=== PATIENT | male | born 1975 | race Caucasian/White ===

== ENCOUNTER 2023-04-29 10:22 | Inpatient (IN) | payer MEDICARE, OTHER, SELFPAY ==
[2023-04-27 20:50] VITALS: BP 123/90
--- NOTE | 2023-04-27 21:17 | ED.GENMED ---
History of Present Illness
General
Chief Complaint: Abdominal Symptoms
Source: patient and records
Exam Limitations: none
Time Seen by Provider: 04/27/23 21:12
Nursing documentation reviewed up to this point in time: agreed with
Travel History
Have you had any contact with someone who has COVID-19?: No
Do you have any symptoms of coronavirus? Fever > 100 degrees, chills, cough, shortness of breath, sore throat, loss of taste or smell, muscle aches, or headache?: No
History of Present Illness
History of Present Illness:
Patient is a 48-year-old male who presents to the emergency department complaining of right back pain and lower abdominal pain with nausea and vomiting this morning. Patient has been having the pain intermittently and has a history of kidney
stones. Patient states his urologist is wanted to get a scan of his abdomen. Patient has cystoscopy that looked fine. Patient denies fever or chills. Patient has not been feeling well for about the last month. Patient has back pain on the
right. Patient denies any hematuria, dysuria, frequency or urgency. Patient began vomiting this morning and has been unable to keep anything down. Patient has not used marijuana in the past 2 weeks.
Past History
Past History
ED Past Medical History: GERD (GERD with Quiñones's esophagus), Other (Kidney stones), Other (Fibromyalgia, anxiety, depression) and Other (Undifferentiated colitis)
ED Past Surgical History: Urological; Negative Bowel resection, Brain, Cardiac or Cholecystectomy
Social History
Tobacco: Non-smoker
Alcohol: None
Drug: Marijuana
Personal:
Living: with family
Family History
Family History: Other (Noncontributory)
Review of Systems
Review of Systems
All Other Systems: ROS reviewed and negative except as documented in HPI and ROS
Constitutional: Reports fatigue and chills; Denies fever
EENT: Reports no symptoms
Respiratory: Reports no symptoms
Cardiac: Reports no symptoms
ABD/GI: Reports abdominal pain, nausea, vomiting and anorexia; Denies diarrhea or constipated
: Reports flank pain; Denies dysuria, frequency, urgency, bleeding or dark urine
Musculoskeletal: Reports back pain
Skin: Reports no symptoms
Neurological: Reports no symptoms
Hematologic/Lymphatic: Reports no symptoms
Phy Exam
Physical Exam
Physical Exam:
Physical Exam
General: significant dry mucous membranes distress, alert and appropriate, well nourished, well hydrated
HENT: Normocephalic, supple with no lymphadenopathy, no thyromegaly
Eyes: Clear sclera, conjuctiva without injection
Heart: Regular rhythm and rate. No S3, S4. No murmur.
Lungs: No respiratory distress, no stridor, lung sounds clear and equal bilaterally, chest wall symmetrical and nontender
Abdomen: Soft, mild lower abdominal tenderness without guarding or rebound, no organomegaly, no CVA tenderness, BS good
Neuro: Alert and oriented x 3, CN II - XII intact, no motor focality, no cerebellar dysfunction
Skin: no rash. Pale
Psychiatric: well kept. interactive and cooperative
Extremities: No edema, cyanosis, tenderness, Good and equal peripheral pulses.
Course
Orders/Labs/Results
Orders:
Orders
04/27/23 21:16
Urinalysis Reflex To Culture Urgent
0.9% Sodium Chloride 1000 ml [Nss] 1,000 ml IV BOLUS
HYDROmorphone [Dilaudid] 1 mg IV NOW STA
Ketorolac [Toradol] 15 mg IV NOW STA
Ondansetron Injectable [Zofran] 4 mg IV NOW STA
04/27/23 21:17
CT Abd/pel Without Iv Or Oral Urgent
Comment:
Reason For Exam: right renal colic
04/27/23 21:23
Complete Blood Count/With Diff Urgent
Comprehensive Metabolic Panel Urgent
Abnormal Lab Results
02/03/24
21:23
RBC 3.98 L 10^6/uL
(4.70-6.10)
Hgb 12.0 L g/dL
(13.0-18.0)
Hct 33.6 L %
(39.0-52.0)
Absolute Lymphs (auto) 0.3 L 10^3/uL
(1.2-3.4)
Neutrophils % 88.7 H %
(42.2-75.2)
Lymphocytes % 4.8 L %
(20.5-51.1)
Carbon Dioxide 19 L mmol/L
(22-30)
Glucose 103 H mg/dl
(70-99)
04/27/23 21:23
04/27/23 21:23
Vital Signs
Initial and Last Documented VS:
Initial Vital Signs
Pulse Resp BP Pulse Ox
125 18 123/90 97
04/27/23 20:50 04/27/23 20:50 04/27/23 20:50 04/27/23 20:50
Last Documented Vital Signs
Pulse Resp BP Pulse Ox
125 18 123/90 97
04/27/23 20:50 04/27/23 20:50 04/27/23 20:50 04/27/23 20:50
*Radiology
Radiology exam reviewed: radiology read reviewed (5 x 5 mm UPJ stone on the right with hydronephrosis)
*Pulse Oximetry
Patient hypoxic: no
*EKG
Interpreted by ED Provider?: NA
*Logging Tractor Operator Interpretation
Rate: Logging Tractor Operator- N/A
*Critical Care Note
Total Time (30-74mins, 75-104mins- exclusive of procedures): Not Applicable
Update Note
Update Note:
Patient still with some pain and nausea although the vomiting stopped. Spoke with urology will admit to the hospitalist.
ED Attending Note
-
Portions of this chart may have been created with voice recognition software.� Occasional wrong word or��sound alike� substitutions may have occurred due to the inherent limitations of voice recognition software.
Discharge Plan
Departure
Patient Disposition: Admit
Date of Disposition: 04/27/23
Time of Disposition: 22:20
Admit to: Med/Surg
Admit to doctor: Hospitalist
Presentation/result/management discussed w/ accepting MD/DO: Urology
Patient with high blood pressure during this ER visit?: No
Condition: Fair
Covid-19: Not Applicable
Discharge Problem:
Renal colic on right side, Acute hydronephrosis, Ureterolithiasis
Prescriptions:
No Action
lorazepam 0.5 MG tablet
0.5 mg PO TID
Patient Comments:
06/05/2021: last filled 05/31/21, 90 tabs for 30 days from [facility]
gabapentin [Neurontin] 600 MG tablet
600 mg PO TID
omeprazole 20 MG capsule,delayed release(DR/EC)
20 mg PO BID
loratadine 10 MG tablet
10 mg PO BID
duloxetine 60 MG capsule,delayed release(DR/EC)
120 mg PO DAILY Qty: 60 0RF
tamsulosin 0.4 MG capsule
0.4 mg PO DAILY 30 Days Qty: 30 0RF
Referrals:
Raffy Colón DO [Family Provider] -
Interventions
Interventions:
*General Assessment Last Done: 04/27/23 21:29
ED- Fall Risk Assessment Last Done: 04/27/23 21:27
JK-Hkvsmt-Qxuajxjobg Assessment Last Done: 04/27/23 21:27
[2023-04-27] MEDS: NSS 1000 IV (21:23)
[2023-04-27] MEDS: DILAUDID 1 MG IV (21:23)
[2023-04-27] MEDS: ZOFRAN 4 MG IV (21:24)
[2023-04-27] MEDS: TORADOL 15 MG IV (21:24)
[2023-04-27 21:31] LABS: % Basophils 0.3 % (0-2); % Immature Granulocytes 0.3 % (0-0.5); % Lymphocytes 4.8 % (20.5-51.1); % Monocytes 5.9 % (1.7-9.3); % Neutrophils 88.7 % (42.2-75.2); Absolute Lymphocytes 0.3 10^3/uL (1.2-3.4); Absolute Monocytes 0.4 10^3/uL (0.1-0.6); Hematocrit 33.6 % (39.0-52.0); Mean Corp Hgb Conc. 35.7 g/dL (33.0-37.0); Mean Corpuscular Hgb 30.2 pg (27.0-31.0); Mean Corpuscular Volume 84.4 fL (80.0-94.0); Mean Platelet Volume 10.3 fL (7.4-10.4); Nucleated Red Blood Cells % 0 % (-); Platelet Count 206 10^3/uL (130-400); Red Blood Cell Count 3.98 10^6/uL (4.70-6.10); Red Cell Dist. Width 12.2 % (11.5-14.5); White Blood Cell Count 6.7 10^3/uL (4.8-10.8)
[2023-04-27 21:45] LABS: ALT (SGPT) 27 U/L (0-50); AST (SGOT) 32 U/L (17-59); Alkaline Phosphatase 90 U/L (38-126); Blood Urea Nitrogen 9 mg/dl (9-20); Calcium 9.2 mg/dl (8.4-10.2); Carbon Dioxide 19 mmol/L (22-30); Chloride 103 mmol/L (98-107); Glucose 103 mg/dl (70-99); Potassium 3.8 mmol/L (3.5-5.1); Sodium 135 mmol/L (135-145); Total Bilirubin 0.6 mg/dl (0.2-1.3); Total Protein 7.3 g/dl (6.3-8.2); eGFR > 60.00
[2023-04-27 22:37] LABS: Urine Albumin 1+ (Neg - Trace); Urine Bilirubin Negative (Negative); Urine Character Clear (Clear); Urine Color Yellow; Urine Glucose Negative (Negative); Urine Ketone 3+ (Negative); Urine Leukocyte Negative (Negative); Urine Nitrite Negative (Negative); Urine Occult Blood Trace (Negative); Urine Specific Gravity 1.025 (<1.030); Urine Urobilinogen Negative (Neg - 1+)
[2023-04-27 23:12] LABS: Urine Bacteria Few (Negative); Urine Red Blood Cell 0-2 /HPF (0-2); Urine Squamous Cell 0-2 /LPF (Few)
--- NOTE | 2023-04-27 23:41 | HPS.HSE ---
Family Physician
-
Family Physician: Raffy Colón
Chief Complaint
-
n/v/right back pain
History of Present Illness
The patient is a 48 yo male with PMH significant for kidney stones, cyclic vomiting syndrome, prior marijuana use (none currently x 2 weeks), anxiety, depression, fibromyalgia, hiatal hernia, presenting to the ED due to nausea and vomiting that has
persisted for several weeks. He presents due to worsening symptoms after he thought they were improving, associated bilateral flank pain that is worse on the right side and radiating to the right thigh. He's had several urologic procedures, sees a
female Urology off of [address] in [place] (he cannot remember her name). He has occasional episodes of hematuria, non currently. No dysuria currently. He has decreased oral intake for food and water due to persistent vomiting. No fevers, no
chills, though he feels flushed prior to vomiting. No CP, no SOB, no diarrhea.
Medical History
Past Medical History
Past Medical History: Reports Psychiatric (Depression, anxiety) and Other (Fibromyalgia, hiatal hernia, kidney stones, cyclic vomiting syndrome)
Past Surgical History: Reports Tonsilectomy and Urological (stents, stone extraction, ureteroscopy)
Social History
Tobacco: Non-smoker
Alcohol: None
Drug: Other (former marijuana - 2 weeks ago)
Family History
Family History: Not pertinent (asked patient and negative for FH)
Allergies / Home Medications
Allergies reflects when Allergies were last updated in [employer].
Home Medications with original date entered in [employer]
Allergy/Medication List:
Allergies
Allergy/AdvReac Type Severity Reaction Status Date / Time
No Known Allergies Allergy Verified 06/07/21 10:37
Home Medications
lorazepam 0.5 mg tablet 0.5 mg PO TID Mental Health/Anxiety 08/04/18
gabapentin 600 mg tablet (Neurontin) 600 mg PO TID Neurological Condition 03/03/21
omeprazole 20 mg capsule,delayed release 20 mg PO BID Gastrointestinal issue 03/03/21
loratadine 10 mg tablet 10 mg PO BID Allergies 03/04/21
duloxetine 60 mg capsule,delayed release 120 mg PO DAILY Mental Health/Anxiety #60 caps 03/07/21
tamsulosin 0.4 mg capsule 0.4 mg PO DAILY 30 days #30 caps 06/06/21
Review of Systems
-
A 12 point ROS was completed and negative except as noted: Yes
Physical Exam
Vital Signs
Vital Signs
Pulse Resp BP Pulse Ox
125 18 123/90 97
04/27/23 20:50 04/27/23 20:50 04/27/23 20:50 04/27/23 20:50
Physical Exam
General: Well Developed, Well Nourished and Appears in Distress (due to flank pain)
HEENT: NormoCephalic, Anicteric and Moist mucous membranes
Respiratory: Clear
Cardiac: S1/S2 and Regular Rhythm
GI: Soft, Non Tender and Non Distended
Genito-urinary: Costovertebral angle tend (b/l)
Musculoskeletal: No Clubbing, No Cyanosis and No Edema
Skin: Warm and Dry
Neuro: AO x 3, No Motor Deficits and Nonfocal/grossly intact
Psych: Calm
Laboratory Results
-
04/27/23 21:23
04/27/23 21:23
Laboratory Results
Total Bilirubin 0.6 mg/dl (0.2-1.3) 04/27/23 21:23
AST 32 U/L (17-59) 04/27/23 21:23
ALT 27 U/L (0-50) 04/27/23 21:23
Alkaline Phosphatase 90 U/L (38-126) 04/27/23 21:23
Data Reviewed
-
CT Scan: Report Reviewed by me (3 by 5 by 5 mm right UPJ stone, multiple non-obstructing stones, left parapelvic cyst, fatty liver)
Impression/Plan
-
IMPRESSION:
The patient is a 48 yo male with PMH significant for kidney stones, cyclic vomiting syndrome, prior marijuana use (none currently x 2 weeks), anxiety, depression, fibromyalgia, hiatal hernia, presenting to the ED due to nausea and vomiting that has
persisted for several weeks. He presents due to worsening symptoms after he thought they were improving, associated bilateral flank pain that is worse on the right side and radiating to the right thigh.
#Nephrolithiasis associated with nausea, vomiting, and right-sided CVA tenderness with moderate to severe flank pain
-Urology consultation appreciated, to see in am
-IVF, strain urine
-IV pain medications prn, anti-emetics prn
#Depression, anxiety, fibromyalgia
-continue home meds once tolerating oral meds
#Hiatal hernia
#Cyclic vomiting, history of marijuana use
#GERD
-cont PPI BID
DVT proph-Lovenox
Full Code
[2023-04-28] VITALS: BP 132/86; BMI 22.4
[2023-04-28] MEDS: NSS 1000 IV ×4 (00:27→20:48)
[2023-04-28] MEDS: DILAUDID 1 MG IV ×2 (00:27→04:29)
--- NOTE | 2023-04-28 01:55 | PTCARENOTE ---
Receive pt from ER. Pt alert oriented X3, calm and cooperative. Pt assisted X1 to his bed. Pt oriented to the room, call sparrow within reach. VSS (T=98.3, IT=304, RR=18, QY=768/86, SpO2=98% on RA). Pt states that his pain is returning. Pain mostly on
his right flank and right lower Abd. Pain is 7/10. Dilaudid 1mg IV given for pain, IVFs infusing as per order. Will continue to monitor the pt.
[2023-04-28] MEDS: ZOFRAN 4 MG IV ×3 (04:28→18:00)
--- NOTE | 2023-04-28 05:56 | CONS.URO ---
Consultation
-
Date/Time Consultation Performed: 04/28/23 0545
Performing Provider: Armando
Reason for Consultation: right ureteral stone
Medical History
History of Present Illness
adult male presentied to the ED due to nausea and vomiting that has persisted for several weeks with
associated bilateral flank pain that is worse on the right side. He has a known active kidney stone disease for which he has seen Dr Miguel at [facility]. 'During the at [facility]' he underwent a surgery for stones.
Past Medical History
Past Medical History: Other (Depression, anxiety) and Other (Fibromyalgia, hiatal hernia, kidney stones, cyclic vomiting syndrome)
Family History
Family History: Reviewed & Not Pertinent
Allergies/Home Medications
Allergies
Allergy/AdvReac Type Severity Reaction Status Date / Time
No Known Allergies Allergy Verified 06/07/21 10:37
Home Medications
Medication Instructions Recorded Confirmed Type
lorazepam 0.5 mg tablet 0.5 mg PO TID Mental Health/Anxiety 08/04/18 06/05/21 History
gabapentin 600 mg tablet 600 mg PO TID Neurological 03/03/21 06/05/21 History
(Neurontin) Condition
omeprazole 20 mg capsule,delayed 20 mg PO BID Gastrointestinal issue 03/03/21 06/05/21 History
release
loratadine 10 mg tablet 10 mg PO BID Allergies 03/04/21 06/05/21 History
duloxetine 60 mg capsule,delayed 120 mg PO DAILY Mental 03/07/21 06/05/21 Rx
release Health/Anxiety #60 caps
tamsulosin 0.4 mg capsule 0.4 mg PO DAILY 30 days #30 caps 06/06/21 Rx
Review of Systems
-
Constitutional: Reports No Symptoms
Respiratory: Reports No Symptoms
Cardiac: Reports No Symptoms
Abdomen/GI: Reports Nausea and Vomiting
: Reports Flank Pain (right)
Physical Exam
Vital Signs
Vital Signs
Temp Pulse Resp BP Pulse Ox
98.5 F 107 18 132/86 97
04/28/23 00:00 04/28/23 00:00 04/28/23 00:00 04/28/23 00:00 04/28/23 00:53
Lab / Testing Results
Laboratory Results
04/27/23 21:23
04/27/23 21:23
Physical Exam
adult male
General: No Apparent Distress
GI: Soft, Non Tender and Non Distended
Genito-urinary: No Costovertebral Tend
Skin: Warm
Neuro: Awake, Alert and Oriented
Psych: Calm
Assessment / Plan
-
Right ureteral calculus: 5-6 mm, proximal, causing partial obstructing
no signs of infection
bilateral renal stones
bilateral renal cysts
Rec: stone's size indicates that it has a significant possibility of passing spontaneously, so Medical Expulsive Therapy is indicated, which can be continued on an outpatient basis once pain is satisfactorily managed
Data Reviewed
-
CT Scan: Image personally visualized and interpreted
Lab Data: Labs Reviewed
Old Records: Reviewed
[2023-04-28] MEDS: TORADOL 30 MG IV (06:27)
[2023-04-28 07:35] VITALS: BP 109/66
[2023-04-28] MEDS: FLOMAX 0.400000000000000022 MG PO (08:32)
[2023-04-28] MEDS: CYMBALTA DELAYED RELEASE 120 MG PO (08:32)
[2023-04-28] MEDS: NEURONTIN 600 MG PO ×2 (08:32→15:00)
[2023-04-28] MEDS: PROTONIX 40 MG PO ×2 (08:33→20:57)
[2023-04-28] MEDS: ATIVAN 0.5 MG PO ×2 (08:33→17:29)
[2023-04-28] MEDS: TYLENOL 650 MG PO ×2 (08:33→23:55)
--- NOTE | 2023-04-28 09:21 | W.PN.HOSP.TC ---
Today's Communication/Plan
-
re-assess pain/nausea in afternoon
Assessment / Plan
Assessment / Plan
Assessment:
Nephrolithiasis associated with nausea, vomiting, and right-sided CVA tenderness with moderate to severe flank pain
- CT: Approximate 3 x 5 x 5 mm partially obstructing calculus at the right ureteropelvic junction. Small bilateral nonobstructing renal calculi.
- Urology following; no surgical management, MET is appropriate
- IVF, strain urine
- IV pain medications prn, anti-emetics prn
- continue Flomax
- if pain levels acceptable on repeat evaluation this afternoon will DC with instructions on MET including aggressive hydration and Flomax usage. Also will provide Urology office info
Depression, anxiety, fibromyalgia
- continue home meds once tolerating oral meds
Hiatal hernia
Cyclic vomiting, history of marijuana use
GERD
- cont PPI BID
DVT proph: Lovenox
Full Code
Anticipated Discharge: Within 24 hours
Subjective/Interval History
-
Date of Service: April 28, 2023
Objective Data
-
Labs:
Laboratory Results
04/27/23
21:23
WBC 6.7
Hgb 12.0 L
Hct 33.6 L
Plt Count 206
Sodium 135
Potassium 3.8
Chloride 103
Carbon Dioxide 19 L
BUN 9
Creatinine 0.8
Glucose 103 H
Calcium 9.2
Total Bilirubin 0.6
AST 32
ALT 27
Alkaline Phosphatase 90
Vital Signs:
Vital Signs
Temp Pulse Resp BP Pulse Ox
98.6 F 122 20 109/66 97
04/28/23 07:35 04/28/23 07:35 04/28/23 07:35 04/28/23 07:35 02/04/24 07:35
I&O
04/27/23 04/28/23 04/29/23
06:59 06:59 06:59
Intake Total 120 / 120
Output Total 250 / 250
Balance -130 / -130
Data Reviewed
-
Total Time Spent with Patient (in minutes): 45
Labs: Labs Reviewed by me
--- NOTE | 2023-04-28 11:25 | CM ---
Addendum entered by Lauren Nicole 04/28/23 14:20:
IMM explained and signed
Original Note:
Met with patient at bedside; initial assessment completed
Pharmacy verified: [facility]
Patient reports that he lives with his in a 2 story home; 2 steps in; 16 steps between floors; powder room on 1st floor; 2nd floor bathroom: one has tub with shower the other has a stall shower
PLOF: reports he is independent with ambulation, stairs, and ADLs; drives; works [employer]
DME: none
SNF/Rehab/Home Care utilization history: none
Transport: will provide discharge home
Plan: possible discharge later today to home without services
[2023-04-28] MEDS: DILAUDID 0.5 MG IV ×4 (11:59→23:29)
[2023-04-28] MEDS: TORADOL 15 MG IV (14:37)
--- NOTE | 2023-04-28 14:52 | W.PN.UPDATE ---
Update Note
Progress Note Update
patient with ongoing flank pain, nausea with vomiting post-lunch
will continue current treatment, observe overnight
provide Claritin as he states he has a headache from missing Claritin; make prn triptan available as Tylenol ineffective
Also provide prn Ativan for anxiety
[2023-04-28] MEDS: CLARITIN 10 MG PO (14:57)
[2023-04-28 15:33] VITALS: BP 117/76
[2023-04-28 15:51] LABS: Benzodiazepines Positive (Negative); Marijuana Positive (Negative); Opiates Positive (Negative)
[2023-04-28 15:52] LABS: Amphetamines Negative (Negative); Barbiturates Negative (Negative); Buprenorphine Negative (Negative); Cocaine Negative (Negative); Methadone Negative (Negative); Methamphetamines Negative (Negative); Phencyclidine Negative (Negative); Tricyclic Antidepressants Negative (Negative)
[2023-04-28 16:33] LABS: Fentanyl, Urine Negative (Negative)
[2023-04-28] MEDS: NEURONTIN PO ×2 (20:57→21:01)
[2023-04-28] MEDS: OCEAN, SALINE MIST 2 SPRAYS NASAL (22:31)
[2023-04-28 23:51] VITALS: BP 129/78
[2023-04-29] MEDS: ZOFRAN 4 MG IV
[2023-04-29] MEDS: MAXALT MLT (ORALLY DISINTEGRATING) 10 MG PO (02:46)
[2023-04-29] MEDS: DILAUDID 0.5 MG IV (03:25)
[2023-04-29] MEDS: NSS 1000 IV (03:25)
[2023-04-29 06:19] LABS: Hematocrit 31.8 % (39.0-52.0); Hemoglobin 10.8 g/dL (13.0-18.0); Mean Corpuscular Hgb 30.3 pg (27.0-31.0); Mean Corpuscular Volume 89.3 fL (80.0-94.0); Mean Platelet Volume 10.6 fL (7.4-10.4); Platelet Count 155 10^3/uL (130-400); Red Blood Cell Count 3.56 10^6/uL (4.70-6.10); Red Cell Dist. Width 12.3 % (11.5-14.5); White Blood Cell Count 5.6 10^3/uL (4.8-10.8)
[2023-04-29 06:40] LABS: Blood Urea Nitrogen 8 mg/dl (9-20); Calcium 8.2 mg/dl (8.4-10.2); Carbon Dioxide 14 mmol/L (22-30); Chloride 100 mmol/L (98-107); Estimated Creatinine Clearance 104 ml/min; Glucose 71 mg/dl (70-99); Potassium 4.4 mmol/L (3.5-5.1); Sodium 131 mmol/L (135-145); eGFR > 60.00
[2023-04-29 07:35] VITALS: BP 110/70
[2023-04-29] MEDS: CYMBALTA DELAYED RELEASE 120 MG PO (08:40)
[2023-04-29] MEDS: PROTONIX 40 MG PO ×2 (08:40→20:06)
[2023-04-29] MEDS: CLARITIN 10 MG PO (08:40)
[2023-04-29] MEDS: NEURONTIN 600 MG PO ×3 (08:40→22:08)
[2023-04-29] MEDS: ATIVAN 0.5 MG PO (08:41)
[2023-04-29] MEDS: FLOMAX 0.400000000000000022 MG PO (08:41)
--- NOTE | 2023-04-29 08:43 | W.PN.URO.CBU ---
Today's Communication / Plan
-
outpatient Medical Expulsive Therapy is indicated: Tamsulosin, Ketorolac; straining of urine
his established urologist at [facility] can continue his care; if he decides otherwise, he can contact my office for f/u
Assessment / Plan
-
Right ureteral stone: pain has improved; based on stone's size, it is likely to eventually pass spontaneously
no signs of infection or renal compromise
Diagnosis
-
Date of Service: April 29, 2023
-
Patient Diagnosis:
Right ureteral calculus: 5-6 mm, proximal, causing partial obstructing
no signs of infection
bilateral renal stones
bilateral renal cysts
Subjective
-
patient reports that pain has dropped to 'a 4 out of 10'
Objective
-
Vital Signs
Temp Pulse Resp BP Pulse Ox
98.0 F 72 16 110/70 98
04/29/23 07:35 04/29/23 07:35 04/29/23 07:35 04/29/23 07:35 04/29/23 07:35
Intake and Output
04/28/23 04/29/23 04/30/23
06:59 06:59 06:59
Intake Total 120 / 120 240 / 240 2760 / 2760
Output Total 250 / 250 600 / 600 1620 / 1620
Balance -130 / -130 -360 / -360 1140 / 1140
Intake:
Oral fluids 120 / 120 240 / 240 960 / 960
IV fluids (Total) 0 / 0 1800 / 1800
IV piggybacks 0 / 0
Output:
Urine, Voided 250 / 250 600 / 600 1620 / 1620
Laboratory Results
04/29/23 05:35
04/29/23 05:35
Physical Exam
-
General - well developed, well nourished, no acute distress
[2023-04-29] MEDS: ROXICODONE 5 MG PO ×2 (08:47→20:06)
--- NOTE | 2023-04-29 13:55 | W.PN.HOSP.TC ---
Today's Communication/Plan
-
Possible discharge
Assessment / Plan
Assessment / Plan
Gen-AAOx3, NAD
HEENT-NC, AT, anicteric, clear oral mm
Neck-supple
CV-reg, no M, +S1/S2
Lungs-clear B/L
Abd-soft, NT, ND
Ext-no edema
Musculoskeletal-no cyanosis, clubbing
Skin-warm and dry
Neuro-grossly non-focal
Psych-calm, cooperative
Symptomatic nephrolithiasis - associated with nausea, vomiting, and right-sided CVA tenderness with moderate to severe flank pain
- CT: Approximate 3 x 5 x 5 mm partially obstructing calculus at the right ureteropelvic junction. Small bilateral nonobstructing renal calculi.
- Urology following; no surgical management, MET is appropriate
- IVF, strain urine
- IV pain medications prn, anti-emetics prn
- continue Flomax
- if pain levels acceptable on repeat evaluation this afternoon will DC with instructions on MET including aggressive hydration and Flomax usage. Also will provide Urology office info
Depression, anxiety, fibromyalgia
- continue home meds once tolerating oral meds
Hiatal hernia
Cyclic vomiting, history of marijuana use
GERD
- cont PPI BID
DVT proph: Lovenox
Full Code
Dispo -potential discharge this afternoon if he tolerates liquids. Discussed with patient and nurse. Outpatient PCP and urology follow-up.
Anticipated Discharge: Today
Subjective/Interval History
-
Date of Service: April 29, 2023
Patient seen and examined. Still with complaints of abdominal discomfort, mild nausea.
Objective Data
-
Labs:
Laboratory Results
04/29/23
05:35
WBC 5.6
Hgb 10.8 L
Hct 31.8 L
Plt Count 155 D
Sodium 131 L
Potassium 4.4
Chloride 100
Carbon Dioxide 14 L*
BUN 8 L
Creatinine 0.8
Glucose 71
Calcium 8.2 L
Vital Signs:
Vital Signs
Temp Pulse Resp BP Pulse Ox
98.0 F 72 16 110/70 98
04/29/23 07:35 04/29/23 07:35 04/29/23 07:35 04/29/23 07:35 04/29/23 07:35
I&O
04/28/23 04/29/23 04/30/23
06:59 06:59 06:59
Intake Total 120 / 120 240 / 240 2760 / 2760
Output Total 250 / 250 600 / 600 1620 / 1620
Balance -130 / -130 -360 / -360 1140 / 1140
Review of Systems
-
History Source: Patient
All other systems: Reviewed and negative
[2023-04-29 14:32] VITALS: BMI 22.4
[2023-04-29 15:15] VITALS: BP 115/76
[2023-04-29] MEDS: TORADOL 15 MG IV (15:16)
[2023-04-29] MEDS: SODIUM BICARBONATE 1150 MEQ IV (16:59)
[2023-04-29 23:21] VITALS: BP 109/76
[2023-04-30] MEDS: ROXICODONE 5 MG PO ×3 (00:14→09:54)
[2023-04-30] MEDS: SODIUM BICARBONATE 1150 MEQ IV (03:12)
[2023-04-30 06:38] LABS: Blood Urea Nitrogen 9 mg/dl (9-20); Calcium 8.4 mg/dl (8.4-10.2); Carbon Dioxide 26 mmol/L (22-30); Chloride 96 mmol/L (98-107); Estimated Creatinine Clearance > 125 ml/min; Glucose 75 mg/dl (70-99); Potassium 3.8 mmol/L (3.5-5.1); Sodium 134 mmol/L (135-145); eGFR > 60.00
[2023-04-30 07:00] VITALS: BP 119/75
[2023-04-30] MEDS: FLOMAX 0.400000000000000022 MG PO (08:42)
[2023-04-30] MEDS: CYMBALTA DELAYED RELEASE 120 MG PO (08:42)
[2023-04-30] MEDS: CLARITIN 10 MG PO (08:42)
[2023-04-30] MEDS: PROTONIX 40 MG PO (08:42)
[2023-04-30] MEDS: NEURONTIN 600 MG PO (08:42)
[2023-04-30] MEDS: ATIVAN 0.5 MG PO (08:42)
[2023-04-30] MEDS: TORADOL 15 MG IV (08:47)
--- NOTE | 2023-04-30 10:22 | W.PN.HOSP.TC ---
Today's Communication/Plan
-
Await urology input
Assessment / Plan
Assessment / Plan
Gen-AAOx3, NAD
HEENT-NC, AT, anicteric, clear oral mm
Neck-supple
CV-reg, no M, +S1/S2
Lungs-clear B/L
Abd-soft, NT, ND
Ext-no edema
Musculoskeletal-no cyanosis, clubbing
Skin-warm and dry
Neuro-grossly non-focal
Psych-calm, cooperative
Symptomatic nephrolithiasis - associated with nausea, vomiting, and right-sided CVA tenderness with moderate to severe flank pain
- CT: Approximate 3 x 5 x 5 mm partially obstructing calculus at the right ureteropelvic junction. Small bilateral nonobstructing renal calculi.
- Urology following; no surgical management, MET is appropriate
- IVF, strain urine
- IV pain medications prn, anti-emetics prn
- continue Flomax
-I Sumner texted urology to discuss any other options given his ongoing symptoms.
Depression, anxiety, fibromyalgia
- continue home meds once tolerating oral meds
Hiatal hernia
Cyclic vomiting, history of marijuana use
GERD
- cont PPI BID
DVT proph: Lovenox
Full Code
Updated on the phone.
Anticipated Discharge: Within 24 hours
Subjective/Interval History
-
Date of Service: April 30, 2023
Patient seen and examined. Still complaining of right-sided abdominal pain, flank pain. Tolerating diet somewhat.
Objective Data
-
Labs:
Laboratory Results
04/30/23
05:43
Sodium 134 L
Potassium 3.8
Chloride 96 L
Carbon Dioxide 26
BUN 9
Creatinine 0.6 L
Glucose 75
Calcium 8.4
Vital Signs:
Vital Signs
Temp Pulse Resp BP Pulse Ox
98.2 F 87 18 119/75 98
04/30/23 07:00 04/30/23 07:00 04/30/23 07:00 04/30/23 07:00 04/30/23 07:00
I&O
04/29/23 04/30/23 05/01/23
06:59 06:59 06:59
Intake Total 240 / 240 5640 / 5640
Output Total 600 / 600 5355 / 5355
Balance -360 / -360 285 / 285
Review of Systems
-
History Source: Patient
All other systems: Reviewed and negative
--- NOTE | 2023-04-30 11:28 | W.PN.URO.CBU ---
Today's Communication / Plan
-
I spoke wtih the patient via phone.
Options offered:
outpatient trial of stone passage with medical therapy
surgery tomorrow -- ureteroscopy with laser lithotripsy and temporary ureteral stenting; 'I definitely don't want that.'
Assessment / Plan
-
Right ureteral stone: pain has improved; based on stone's size, it is likely to eventually pass spontaneously
no signs of infection or renal compromise
Diagnosis
-
Date of Service: April 30, 2023
-
Patient Diagnosis:
Right ureteral calculus: 5-6 mm, proximal, causing partial obstructing
no signs of infection
bilateral renal stones
bilateral renal cysts
Subjective
-
lessened, but persistent pain
Objective
-
Vital Signs
Temp Pulse Resp BP Pulse Ox
98.2 F 87 18 119/75 97
04/30/23 07:00 04/30/23 07:00 04/30/23 07:00 04/30/23 07:00 04/30/23 11:05
Intake and Output
04/29/23 04/30/23 05/01/23
06:59 06:59 06:59
Intake Total 240 / 240 5640 / 5640
Output Total 600 / 600 5355 / 5355
Balance -360 / -360 285 / 285
Intake:
Oral fluids 240 / 240 2640 / 2640
IV fluids (Total) 3000 / 3000
Output:
Urine, Voided 600 / 600 5355 / 5355
Other:
Number of approximated SMALL 1
amounts of urine
Laboratory Results
04/29/23 05:35
04/30/23 05:43
Physical Exam
-
General - well developed, well nourished, no acute distress
Chest - clear bilaterally
Abdomen - soft, non-tender, positive bowel sounds, no CVAT, no incisional pain or distention
Genitalia - normal
Rectal - normal
Skin - warm & dry with no rash
Neuro - AOx3, no motor deficits
Extremities - no clubbing, no cyanosis, no edema
Incision - clean, dry
Dressing - clean, dry, intact
Care Review
Data Reviewed
Discussed with: Hospitalist
--- NOTE | 2023-04-30 11:37 | W.DS.TRANS ---
DC Summary - Occupational Nurse
-
Discharge Instructions:
Discharge Diagnosis/Procedures Right Ureteral Stone; Bilateral Kidney stones
Diet Regular
Activity As tolerated
Driving Restrictions As prior to admission
Bathing Restrictions None
Instructions:
Stand-Alone Forms:
Changes to Home Medications: No
Discharge Medications:
DC Medications w/original date entered in [employer]
lorazepam 0.5 mg tablet 0.5 mg PO TID Mental Health/Anxiety 08/04/18
gabapentin 600 mg tablet (Neurontin) 600 mg PO TID Neurological Condition 03/03/21
omeprazole 20 mg capsule,delayed release 20 mg PO BID Gastrointestinal issue 03/03/21
loratadine 10 mg tablet 10 mg PO BID Allergies 03/04/21
duloxetine 60 mg capsule,delayed release 120 mg PO DAILY Mental Health/Anxiety #60 caps 03/07/21
ketorolac 10 mg tablet 10 mg PO Q6H 5 days #20 tabs 04/28/23
tamsulosin 0.4 mg capsule 0.4 mg PO DAILY Urinary Issue 04/28/23
Home Medication Changes
Pending Results: No
--- NOTE | 2023-04-30 13:06 | CM ---
CM following re: d/c planning
Chart reviewed
Pt is medically stable for d/c
Pt still c/o of mild abd. pain; per urology due to size of ureteral stone, it will likely pass on its own
Pt declined having any urologic sx and will f/u outpatient with his urologist at [facility]
Pt is functionally independent and has no needs
IMM was reviewed & copy provided by previous CM
Patient's spouse to transport patient home at time of d/c
PLAN; d/c home no needs
== END 2023-04-30 14:46 | disposition home or self-care (01) | DRG 694 ==
LOC: 4 EAST ACU 10:22
PROVIDERS: Internal Medicine; ADMITTING PHYSICIAN Internal Medicine; ATTENDING PHYSICIAN Hospitalist; CONSULT PHYSICIAN Specialist; EMERGENCY PHYSICIAN Emergency Medicine; FAMILY PHYSICIAN Family Medicine Sports Medicine
DX: N13.2 Hydronephrosis with renal and ureteral calculous obstruction (principal); M54.9 Dorsalgia, unspecified; F32.A Depression, unspecified; F41.9 Anxiety disorder, unspecified; M79.7 Fibromyalgia; K52.9 Noninfective gastroenteritis and colitis, unspecified; K44.9 Diaphragmatic hernia without obstruction or gangrene; K21.9 Gastro-esophageal reflux disease without esophagitis; Z87.442 Personal history of urinary calculi
CPT/HCPCS: 74176; 80048; 80053; 80306; 80307; 81003; 81015; 85025; 85027; 96361; 96374; 96375; 99284

== ENCOUNTER → 2023-06-20 12:03 | Outpatient (REF) | payer MEDICARE, OTHER, SELFPAY | LOC: HWRAD 12:03 | PROVIDERS: ATTENDING PHYSICIAN Urology; FAMILY PHYSICIAN Family Medicine Sports Medicine | DX: R31.0 Gross hematuria (principal) | CPT/HCPCS: 74018; 74178; Q9967 ==

== ENCOUNTER 2023-07-19 13:42 | Emergency (ER) | payer MEDICARE, OTHER, SELFPAY ==
[2023-07-19 13:51] VITALS: BP 134/98
[2023-07-19] MEDS: MORPHINE SULFATE 4 MG IV (14:36)
[2023-07-19] MEDS: ZOFRAN 4 MG IV (14:36)
[2023-07-19] MEDS: NSS 1000 IV (14:38)
[2023-07-19 14:55] LABS: % Basophils 0.3 % (0-2); % Eosinophils 0.1 % (0-6); % Immature Granulocytes 0.5 % (0-0.5); % Monocytes 3.2 % (1.7-9.3); % Neutrophils 87.9 % (42.2-75.2); Absolute Immature Granulocytes 0.1 10^3/uL (0-0.05); Absolute Lymphocytes 1.1 10^3/uL (1.2-3.4); Absolute Monocytes 0.5 10^3/uL (0.1-0.6); Absolute Neutrophils 12.3 10^3/uL (1.4-6.5); Hematocrit 37.4 % (39.0-52.0); Mean Corp Hgb Conc. 34.8 g/dL (33.0-37.0); Mean Corpuscular Hgb 29.5 pg (27.0-31.0); Mean Platelet Volume 10.1 fL (7.4-10.4); Nucleated Red Blood Cells % 0 % (-); Platelet Count 268 10^3/uL (130-400); Red Cell Dist. Width 12.4 % (11.5-14.5)
--- NOTE | 2023-07-19 15:00 | ED.GENMED ---
History of Present Illness
<Brennon Holloway PA-C - Last Filed: 07/19/23 18:21>
General
Chief Complaint: Post Operative Problem(s)
Source: patient and spouse
Time Seen by Provider: 07/19/23 14:15
Travel History
Have you had any contact with someone who has COVID-19?: No
Do you have any symptoms of coronavirus? Fever > 100 degrees, chills, cough, shortness of breath, sore throat, loss of taste or smell, muscle aches, or headache?: No
History of Present Illness
History of Present Illness:
48-year-old male with past medical history of migraines, seizure disorder, hyperlipidemia, status post right-sided kidney stone extraction and stent placement earlier today done by urologist, Dr. Miguel at an [facility], presenting to
the emergency department due to right-sided flank pain since 10:30 AM (surgery was completed by 7:30 AM) did not take anything for the pain other than some Tylenol prior to arrival. He denies any fevers, chills, rigors but does admit to persistent
nausea with few episodes of nonbloody nonbilious emesis. He does state that he has had discomfort with urination since the surgery but was told that this could be normal. Patient notes a previous history of complications following a ureteral stent
removal from many years ago that required admission and having to go back to the OR but was unable to tell me exactly what the complications were.
Past History
<Brennon Holloway PA-C - Last Filed: 07/19/23 18:21>
Past History
ED Past Medical History: GERD (GERD with Quiñones's esophagus), Other (Kidney stones), Other (Fibromyalgia, anxiety, depression) and Other (Undifferentiated colitis)
ED Past Surgical History: Urological; Negative Bowel resection, Brain, Cardiac or Cholecystectomy
Social History
Tobacco: Non-smoker
Alcohol: None
Drug: Marijuana
Personal:
Living: with family
Family History
Family History: Other (Noncontributory)
Review of Systems
<Brennon Holloway PA-C - Last Filed: 07/19/23 18:21>
Review of Systems
All Other Systems: ROS reviewed and negative except as documented in HPI and ROS
Phy Exam
<Brennon Holloway PA-C - Last Filed: 07/19/23 18:21>
Physical Exam
Physical Exam:
GENERAL: Alert , very uncomfortable, writhing around in room, unable to sit still
EYE: clear conjunctiva
NECK: Supple
ENT: o/p clr, mmm.
CARDIAC: Regular rate and rhythm .
LUNGS: Clear breath sounds bilaterally, no acute respiratory distress, no wheezes/rales/rhonchi
ABDOMEN: Soft, without focal tenderness, no r/g, moderate right CVA tenderness
NEUROLOGICAL: Alert and oriented
SKIN: Warm and dry, skin intact.
MUSCULOSKELETAL: No edema, well perfused.
PSYCH: Normal and appropriate interaction.
Scores
<Brennon Holloway PA-C - Last Filed: 07/19/23 18:21>
Heart Failure Risk
Heart Failure Risk Score: Not Applicable
Heart Score for Chest Pain Patients
STEMI patient?: Not applicable
Withdrawal Assessment of Alcohol
Withdrawal Assessment Completed?: Not applicable
Course
<Brennon Holloway PA-C - Last Filed: 07/19/23 18:21>
Orders/Labs/Results
Orders:
Orders
07/19/23 14:29
0.9% Sodium Chloride 1000 ml [Nss] 1,000 ml IV BOLUS
Morphine Sulfate 4 mg IV NOW STA
Ondansetron Injectable [Zofran] 4 mg IV NOW STA
07/19/23 14:36
CT Abd/pel Without Iv Or Oral Urgent
Comment:
Reason For Exam: right ureteral stent placed today, severe pain
07/19/23 14:41
Complete Blood Count/With Diff Urgent
Comprehensive Metabolic Panel Urgent
07/19/23 16:17
Lorazepam [Ativan] 1 mg IV NOW STA
07/19/23 17:22
Urinalysis Reflex To Culture Urgent
Date Specimen was Collected: 07/19/23
Time Specimen was Collected: 17:21
Urine Microscopic Reflex Cult Urgent
Urine Culture Urgent
POLO Source: U
Specimen Description:
Date Specimen was Collected: 07/19/23
Time Specimen was Collected: 17:21
Abnormal Lab Results
07/19/23 07/19/23
14:41 17:22
WBC 14.0 H 10^3/uL
(4.8-10.8)
RBC 4.40 L 10^6/uL
(4.70-6.10)
Hct 37.4 L %
(39.0-52.0)
Abs Immat Gran (auto) 0.1 H 10^3/uL
(0-0.05)
Absolute Neuts (auto) 12.3 H 10^3/uL
(1.4-6.5)
Absolute Lymphs (auto) 1.1 L 10^3/uL
(1.2-3.4)
Neutrophils % 87.9 H %
(42.2-75.2)
Lymphocytes % 8.0 L %
(20.5-51.1)
Sodium 134 L mmol/L
(135-145)
Glucose 123 H mg/dl
(70-99)
Urine Ketones 2+ A
(Negative)
Ur Occult Blood Reflex 4+ A
(Negative)
Urine Nitrite (Reflex) Positive A
(Negative)
Urine Bilirubin 1+ A
(Negative)
Leukocyte Esterase Rfl 2+ A
(Negative)
Urine RBC >100 A /HPF
(0-2)
Urine WBC (Reflex) 11-15 A /HPF
(0-5)
Urine Albumin (Reflex) 2+ A
(Neg - Trace)
07/19/23 14:41
07/19/23 14:41
Vital Signs
Initial and Last Documented VS:
Initial Vital Signs
Pulse Resp BP Pulse Ox
103 20 134/98 97
07/19/23 13:51 07/19/23 13:51 07/19/23 13:51 07/19/23 13:51
Last Documented Vital Signs
Pulse Resp BP Pulse Ox
103 20 134/98 97
07/19/23 13:51 07/19/23 13:51 07/19/23 13:51 07/19/23 13:51
<Pj Romero MD - Last Filed: 07/19/23 15:58>
Orders/Labs/Results
Orders:
Orders
07/19/23 14:29
0.9% Sodium Chloride 1000 ml [Nss] 1,000 ml IV BOLUS
Morphine Sulfate 4 mg IV NOW STA
Ondansetron Injectable [Zofran] 4 mg IV NOW STA
07/19/23 14:36
CT Abd/pel Without Iv Or Oral Urgent
Comment:
Reason For Exam: right ureteral stent placed today, severe pain
07/19/23 14:41
Complete Blood Count/With Diff Urgent
Comprehensive Metabolic Panel Urgent
07/19/23 16:17
Lorazepam [Ativan] 1 mg IV NOW STA
07/19/23 17:22
Urinalysis Reflex To Culture Urgent
Date Specimen was Collected: 07/19/23
Time Specimen was Collected: 17:21
Urine Microscopic Reflex Cult Urgent
Urine Culture Urgent
POLO Source: U
Specimen Description:
Date Specimen was Collected: 07/19/23
Time Specimen was Collected: 17:21
Abnormal Lab Results
07/19/23 07/19/23
14:41 17:22
WBC 14.0 H 10^3/uL
(4.8-10.8)
RBC 4.40 L 10^6/uL
(4.70-6.10)
Hct 37.4 L %
(39.0-52.0)
Abs Immat Gran (auto) 0.1 H 10^3/uL
(0-0.05)
Absolute Neuts (auto) 12.3 H 10^3/uL
(1.4-6.5)
Absolute Lymphs (auto) 1.1 L 10^3/uL
(1.2-3.4)
Neutrophils % 87.9 H %
(42.2-75.2)
Lymphocytes % 8.0 L %
(20.5-51.1)
Sodium 134 L mmol/L
(135-145)
Glucose 123 H mg/dl
(70-99)
Urine Ketones 2+ A
(Negative)
Ur Occult Blood Reflex 4+ A
(Negative)
Urine Nitrite (Reflex) Positive A
(Negative)
Urine Bilirubin 1+ A
(Negative)
Leukocyte Esterase Rfl 2+ A
(Negative)
Urine RBC >100 A /HPF
(0-2)
Urine WBC (Reflex) 11-15 A /HPF
(0-5)
Urine Albumin (Reflex) 2+ A
(Neg - Trace)
07/19/23 14:41
07/19/23 14:41
Vital Signs
Initial and Last Documented VS:
Initial Vital Signs
Pulse Resp BP Pulse Ox
103 20 134/98 97
07/19/23 13:51 07/19/23 13:51 07/19/23 13:51 07/19/23 13:51
Last Documented Vital Signs
Pulse Resp BP Pulse Ox
103 20 134/98 97
07/19/23 13:51 07/19/23 13:51 07/19/23 13:51 07/19/23 13:51
<Brennon Holloway PA-C - Last Filed: 07/19/23 18:21>
MDM/Problems Addressed
Differential Diagnosis Includes:
Postoperative pain, less concern for infection given surgery was less than 12 hours ago, ureteral rupture
MDM/Problems Addressed:
48-year-old male present emergency department for evaluation of significant right-sided flank pain after surgery today with ureteral stent placement due to a right-sided kidney stone. Patient and spouse note that the kidney stone has been present
since December and they were waiting to see if this would pass. It appears that surgery was delayed due to insurance issues for the patient which is why he waited so long. There are no fevers or current infectious symptoms which would be less
likely cause of patient's pain given his surgery was earlier this morning. Due to the amount of pain question ureteral rupture although there is no signs of any hemodynamic instability. Will check labs, repeat CT imaging and pain control with
morphine and Zofran for nausea.
<Brennon Holloway PA-C - Last Filed: 07/19/23 18:21>
*Radiology
Radiology exam reviewed: radiology read reviewed
*Pulse Oximetry
Patient hypoxic: no
*Critical Care Note
Total Time (30-74mins, 75-104mins- exclusive of procedures): Not Applicable
Data Reviewed
Review of Other/Old Records Reveals: Labs and Records
Source: patient and spouse
<Brennon Holloway PA-C - Last Filed: 07/19/23 18:21>
Patient Management
Escalation/DeEscalation of care consider admission/obs:
Patient's imaging studies unremarkable for any acute pathology. Patient did note some increased discomfort upon returning to the emergency department from radiology. 1 mg of Ativan was ordered which patient tolerated well. He does have a mild
leukocytosis and urine was nitrite positive. I do suspect that most of this is likely related from procedure today however will cover with antibiotics. Prescription for Percocet Zofran sent to pharmacy. Patient will follow-up with his urologist.
Aware of return precautions to the ER.
ED Attending Note
<Brennon Holloway PA-C - Last Filed: 07/19/23 18:21>
-
Portions of this chart may have been created with voice recognition software.� Occasional wrong word or��sound alike� substitutions may have occurred due to the inherent limitations of voice recognition software.
<Pj Romero MD - Last Filed: 07/19/23 15:58>
ED Attending Note
Patient seen and examined by attending physician: Yes
I performed the substantive portion of visit, reviewed & personally made and approve the management plan that is documented in note by myself or IRASEMA.: Yes
ED Attending Note:
Patient with stent right ureteral and kidney stone removal earlier today. Was stable upon discharge from the outpatient facility. Developed sudden severe right flank pain about 10 AM. Severe pain nausea vomiting. No fever or chills.
On exam patient is nontoxic but appears moderately uncomfortable. Stable vital signs. No fever. Some right flank pain. No CVA tenderness. Abdomen is nontender. Warm and dry perfusing well. No respiratory distress.
Impression sudden severe pain after recent stent and ureteral stone removal. Workup including labs CT pending.
Discharge Plan
Departure
Patient Disposition: Home (Routine Discharge)
Date of Disposition: 07/19/23
Time of Disposition: 17:30
Patient with high blood pressure during this ER visit?: Yes
Discharge Problem:
Other acute postprocedural pain
Instructions: Postoperative Pain (DC)
Prescriptions:
New
oxycodone-acetaminophen [Percocet] 5-325 mg Tablet
1 tab PO Q6HPRN PRN (Reason: pain) Qty: 6 0RF
ondansetron 4 mg Tablet,Disintegrating
4 mg PO TIDPRN PRN (Reason: nausea/vomiting) Qty: 8 0RF
cefuroxime axetil 500 mg tablet
500 mg PO BID Qty: 20 0RF
No Action
lorazepam 0.5 MG tablet
0.5 mg PO TID
Patient Comments:
06/05/2021: last filled 05/31/21, 90 tabs for 30 days from [facility]
gabapentin [Neurontin] 600 MG tablet
600 mg PO TID
omeprazole 20 MG capsule,delayed release(DR/EC)
20 mg PO BID
loratadine 10 MG tablet
10 mg PO BID
duloxetine 60 MG capsule,delayed release(DR/EC)
120 mg PO DAILY Qty: 60 0RF
ketorolac 10 mg tablet
10 mg PO Q6H 5 Days Qty: 20 0RF
tamsulosin 0.4 MG capsule
0.4 mg PO DAILY Qty: 30 0RF
Referrals:
Raffy Colón DO [Family Provider] -
Interventions
Interventions:
*Risk Screen - Suicide Last Done: 07/19/23 15:01
*General Assessment Last Done: 07/19/23 15:01
*Neglect/Abuse Screening Last Done: 07/19/23 15:01
ED- Fall Risk Assessment Last Done: 07/19/23 18:14
*ED COVID-19 Vaccine History Last Done: 07/19/23 13:51
*Nursing Disposition Last Done: 07/19/23 18:14
ED-Skin Assessment Last Done: 07/19/23 15:01
Discharge Date and Time
Discharge Date/Time: 07/19/23 18:15
Print Language: TONGAN
[2023-07-19 15:07] LABS: ALT (SGPT) 16 U/L (0-50); AST (SGOT) 23 U/L (17-59); Alkaline Phosphatase 77 U/L (38-126); Blood Urea Nitrogen 19 mg/dl (9-20); Calcium 9.8 mg/dl (8.4-10.2); Carbon Dioxide 27 mmol/L (22-30); Chloride 102 mmol/L (98-107); Glucose 123 mg/dl (70-99); Potassium 4.3 mmol/L (3.5-5.1); Sodium 134 mmol/L (135-145); Total Bilirubin 0.4 mg/dl (0.2-1.3); Total Protein 7.4 g/dl (6.3-8.2); eGFR > 60.00
[2023-07-19] MEDS: ATIVAN 1 MG IV (16:22)
[2023-07-19 17:31] LABS: Urine Albumin 2+ (Neg - Trace); Urine Bilirubin 1+ (Negative); Urine Character Very Cloudy (Clear); Urine Color Amber; Urine Glucose Negative (Negative); Urine Ketone 2+ (Negative); Urine Leukocyte 2+ (Negative); Urine Nitrite Positive (Negative); Urine Occult Blood 4+ (Negative); Urine Urobilinogen 1+ (Neg - 1+)
[2023-07-19 17:48] LABS: Urine Red Blood Cell >100 /HPF (0-2)
== END 2023-07-19 18:15 | disposition home or self-care (01) ==
LOC: EMR 13:42
PROVIDERS: Physician Assistant Medical; EMERGENCY PHYSICIAN Emergency Medicine; FAMILY PHYSICIAN Family Medicine Sports Medicine
DX: G89.18 Other acute postprocedural pain (principal); R10.9 Unspecified abdominal pain; R11.2 Nausea with vomiting, unspecified; R03.0 Elevated blood-pressure reading, without diagnosis of hypertension; G43.909 Migraine, unspecified, not intractable, without status migrainosus; K21.9 Gastro-esophageal reflux disease without esophagitis; K22.70 Barrett's esophagus without dysplasia; M79.7 Fibromyalgia; F41.9 Anxiety disorder, unspecified; F32.A Depression, unspecified; K52.9 Noninfective gastroenteritis and colitis, unspecified; R56.9 Unspecified convulsions; E78.5 Hyperlipidemia, unspecified; Z87.442 Personal history of urinary calculi; Z98.890 Other specified postprocedural states
CPT/HCPCS: 99284; 96374; 96375 ×2; 96361; 74176; 80053; 81003; 81015; 85025; 87086

== ENCOUNTER 2023-07-21 06:43 | Observation (INO) | payer MEDICARE, OTHER, SELFPAY ==
[2023-07-21 04:13] VITALS: BP 132/91; BMI 23.6
--- NOTE | 2023-07-21 04:20 | ED.GENMED ---
History of Present Illness
General
Chief Complaint: Flank Pain
Time Seen by Provider: 07/21/23 04:19
Travel History
Have you had any contact with someone who has COVID-19?: No
Do you have any symptoms of coronavirus? Fever > 100 degrees, chills, cough, shortness of breath, sore throat, loss of taste or smell, muscle aches, or headache?: No
History of Present Illness
History of Present Illness:
HPI: 2 days ago, the patient had stent placement with kidney stone extraction from the right ureter by Dr. Miguel at [facility] he was seen here 2 nights ago with severe pain and had CT imaging. They called the doctors at [facility] yesterday who said
there is nothing more than to do. However he was concerned because he has had poor p.o. intake and severe pain since that time.
EXAM:
GENERAL: Well appearing but initially in severe distress
HEENT: Moist oral mucosa
CARDIOVASCULAR: No murmurs, normal heart rate, regular rhythm, No chest wall tenderness
PULMONARY: No respiratory distress, breath sounds are clear and equal
ABDOMEN: Soft with no peritoneal signs, minimal if any right-sided tenderness, no significant CVA tenderness
NEUROLOGIC: Excellent strength all extremities, no coordination deficits
PSYCHIATRIC: Appropriate mental status, normal insight and judgement
EXTREMITIES: Nontender, no edema, moves all extremities equally
SKIN: No rash, no lesions
TIME OF INITIAL ENCOUNTER: 4 AM
NUMBER AND COMPLEXITY OF PROBLEMS ADDRESSED AT THE ENCOUNTER
� Chronic conditions affecting care: Kidney stones, anxiety/depression, has had colitis
� Acute Exacerbation and/or Progression of Chronic Illness: This is an acute problem
� Differential Diagnosis includes: Nonspecific flank pain, UTI/pyelonephritis unlikely as urine culture from 2 days ago's was negative, ureteral spasm from stent placement
AMOUNT AND/OR COMPLEXITY OF DATA TO BE REVIEWED AND ANALYZED
� I performed an independent evaluation of and my interpretation is:
EKG:
CT:
X-rays:
Laboratory Studies:
Other:
� Review of other/old records: The patient had a CT performed 07/19/2023 that showed appropriate position of the right double-J stent
� Clinical information was obtained by an independent historian: I spoke to at bedside
� Prescriptions/Medications Considered but not given:
� Further testing considered but not performed:
RISK OF COMPLICATIONS AND/OR MORBIDITY OR MORTALITY OF PATIENT MANAGEMENT
� Social determinants of health affecting care: Lives at home
� Discussion with other providers: Hospitalist for admission
� Escalation of care including admission/observation vs risk of discharge considered: The patient was given Toradol initially, with only minimal improvement. He was then given 2 doses of Dilaudid as well as fluids. He now
appears more comfortable however does not feel comfortable with going home. I also tried to call down to [facility] however they were unable to connect me with his urologist stating that they only have access to urologist at [place]. The patient
came here because he lives closer to [place] as opposed to [place].
Past History
Past History
ED Past Medical History: GERD (GERD with Quiñones's esophagus), Other (Kidney stones), Other (Fibromyalgia, anxiety, depression) and Other (Undifferentiated colitis)
ED Past Surgical History: Urological; Negative Bowel resection, Brain, Cardiac or Cholecystectomy
Social History
Tobacco: Non-smoker
Alcohol: None
Drug: Marijuana
Personal:
Living: with family
Family History
Family History: Other (Noncontributory)
Phy Exam
Physical Exam
Physical Exam:
See HPI
Course
Orders/Labs/Results
Orders:
Orders
07/21/23 04:19
Ketorolac [Toradol] 15 mg IV NOW STA
07/21/23 04:20
0.9% Sodium Chloride 1000 ml [Nss] 1,000 ml IV BOLUS
Ketorolac [Toradol] 15 mg .ROUTE .STK-MED ONE
07/21/23 04:22
Ondansetron Injectable [Zofran] 4 mg .ROUTE .STK-MED ONE
Ondansetron Injectable [Zofran] 4 mg IV NOW STA
07/21/23 04:24
Ondansetron Injectable [Zofran] 4 mg IV NOW STA
07/21/23 04:25
Basic Metabolic Panel Urgent
Complete Blood Count/With Diff Urgent
07/21/23 04:31
HYDROmorphone [Dilaudid] 1 mg .ROUTE .STK-MED ONE
07/21/23 04:32
HYDROmorphone [Dilaudid] 1 mg IV NOW STA
07/21/23 06:18
Admit/Transfer Patient As Directed
Co-Sign Provider:
Level of Care: Observation services
Assign to:: Medical/Surgical
Physician / Group: hospitalist
Diagnosis: intractable nausea and vomiting
07/21/23 06:19
Code Status As Directed
Resuscitation Status: Full Code
Abnormal Lab Results
07/21/23
04:25
WBC 12.0 H 10^3/uL
(4.8-10.8)
Absolute Neuts (auto) 8.3 H 10^3/uL
(1.4-6.5)
Absolute Monos (auto) 1.2 H 10^3/uL
(0.1-0.6)
Monocytes % 9.7 H %
(1.7-9.3)
Carbon Dioxide 21 L mmol/L
(22-30)
Glucose 126 H mg/dl
(70-99)
Calcium 10.4 H mg/dl
(8.4-10.2)
07/21/23 04:25
07/21/23 04:25
Vital Signs
Initial and Last Documented VS:
Initial Vital Signs
Temp Pulse Resp BP Pulse Ox
98.1 F 138 24 132/91 98
07/21/23 04:13 07/21/23 04:13 07/21/23 04:13 07/21/23 04:13 07/21/23 04:13
Last Documented Vital Signs
Temp Pulse Resp BP Pulse Ox
98.1 F 83 16 114/78 99
07/21/23 04:13 07/21/23 06:50 07/21/23 06:50 07/21/23 06:50 07/21/23 06:50
*Critical Care Note
Total Time (30-74mins, 75-104mins- exclusive of procedures): Not Applicable
ED Attending Note
-
Portions of this chart may have been created with voice recognition software.� Occasional wrong word or��sound alike� substitutions may have occurred due to the inherent limitations of voice recognition software.
Discharge Plan
Departure
Patient Disposition: Admit
Date of Disposition: 07/21/23
Time of Disposition: 05:22
Presentation/result/management discussed w/ accepting MD/DO: Hospitalist
Discharge Problem:
Intractable nausea and vomiting
Interventions
Interventions:
*Risk Screen - Suicide Last Done: 07/21/23 04:13
*General Assessment Last Done: 07/21/23 04:13
*Neglect/Abuse Screening Last Done: 07/21/23 04:13
*ED COVID-19 Vaccine History Last Done: 07/21/23 04:13
TF-Ktxsod-Uzuvqhmwqi Assessment Last Done: 07/21/23 04:20
ED-Male Genitourinary Assessment Last Done: 07/21/23 04:20
[2023-07-21] MEDS: ZOFRAN 4 MG IV ×4 (04:23→23:25)
[2023-07-21] MEDS: TORADOL 15 MG IV (04:23)
[2023-07-21] MEDS: NSS 1000 IV (04:23)
[2023-07-21] MEDS: DILAUDID 1 MG IV ×5 (04:32→23:24)
[2023-07-21 04:34] LABS: % Basophils 0.4 % (0-2); % Eosinophils 0.2 % (0-6); % Immature Granulocytes 0.2 % (0-0.5); % Lymphocytes 20.8 % (20.5-51.1); % Monocytes 9.7 % (1.7-9.3); % Neutrophils 68.7 % (42.2-75.2); Absolute Basophils 0.1 10^3/uL (0-0.2); Absolute Lymphocytes 2.5 10^3/uL (1.2-3.4); Absolute Monocytes 1.2 10^3/uL (0.1-0.6); Absolute Neutrophils 8.3 10^3/uL (1.4-6.5); Hematocrit 39.4 % (39.0-52.0); Hemoglobin 13.9 g/dL (13.0-18.0); Mean Corp Hgb Conc. 35.3 g/dL (33.0-37.0); Mean Corpuscular Hgb 29.3 pg (27.0-31.0); Mean Corpuscular Volume 82.9 fL (80.0-94.0); Mean Platelet Volume 9.9 fL (7.4-10.4); Nucleated Red Blood Cells % 0 % (-); Platelet Count 316 10^3/uL (130-400); Red Blood Cell Count 4.75 10^6/uL (4.70-6.10); Red Cell Dist. Width 12.3 % (11.5-14.5)
[2023-07-21 04:45] LABS: Blood Urea Nitrogen 17 mg/dl (9-20); Calcium 10.4 mg/dl (8.4-10.2); Carbon Dioxide 21 mmol/L (22-30); Chloride 102 mmol/L (98-107); Estimated Creatinine Clearance 107 ml/min; Glucose 126 mg/dl (70-99); Potassium 4.1 mmol/L (3.5-5.1); Sodium 136 mmol/L (135-145); eGFR > 60.00
--- NOTE | 2023-07-21 05:59 | HPS.HSE ---
Family Physician
-
Family Physician: Raffy Colón
Chief Complaint
-
Flank pain with intractable nausea vomiting
History of Present Illness
This Is a 48-year-old male who has a past medical history significant for Quiñones's esophagus, migraine headaches, chronic marijuana use, nephrolithiases recent admission here for renal colic with right-sided kidney stones presenting with
right-sided flank pain and nausea and vomiting that has been intractable.
Patient was admitted here in April for right-sided renal colic. At that time he was offered definitive procedure but he opted for medical management and was discharged. Ultimately patient saw his outpatient physician and was put in touch with a
urologist at [place]. The patient underwent ureteroscopy and stent placement 2 days ago via her outpatient surgical center. Status post procedure he continued to have right-sided flank pain, hematuria, nausea and vomiting. He is unable to
tolerate p.o. for his prescribed medications which included tamsulosin, Toradol, and even the ondansetron. He had no alia fevers but did notice some sweats. He was seen in the emergency department a few hours after the procedure. The CT scan was
done which showed a right double J stent that was positioned properly and there were no further obstructing stones. He still had multiple nonobstructing stones bilaterally.
He now returns to the emergency department again with intractable nausea vomiting and inability tolerate p.o. with mild dehydration.
BP was stable but he was tachycardic to the 130s. He was afebrile with a Tmax of 98.4. Chemistries are within normal limits. CBC shows improving leukocytosis and otherwise normal. Provided IV pain medicines including Dilaudid x 2 as well as IV
Zofran. Patient somewhat improved but feels he cannot go home yet.
Medical History
Past Medical History
Past Medical History: Reports Other (nephrolithiasis)
Additional Past Medical History:
Marijuana use
Quiñones esophagus
Past Surgical History: Reports Urological
Social History
Tobacco: Non-smoker
Alcohol: None
Drug: Marijuana
Personal:
Living: With Family
Employment: Employed
Family History
Family History: Not pertinent
Allergies / Home Medications
Allergies reflects when Allergies were last updated in [facility].
Home Medications with original date entered in [facility]
Allergy/Medication List:
Allergies
Allergy/AdvReac Type Severity Reaction Status Date / Time
No Known Allergies Allergy Verified 07/19/23 13:54
Home Medications
lorazepam 0.5 mg tablet 0.5 mg PO TID Mental Health/Anxiety 08/04/18
gabapentin 600 mg tablet (Neurontin) 600 mg PO TID Neurological Condition 03/03/21
omeprazole 20 mg capsule,delayed release 20 mg PO BID Gastrointestinal issue 03/03/21
loratadine 10 mg tablet 10 mg PO BID Allergies 03/04/21
duloxetine 60 mg capsule,delayed release 120 mg (2 x 60 mg) PO DAILY Mental Health/Anxiety #60 caps 03/07/21
ketorolac 10 mg tablet 10 mg PO Q6H 5 days #20 tabs 04/28/23
tamsulosin 0.4 mg capsule 0.4 mg PO DAILY Urinary Issue #30 caps 04/30/23
cefuroxime axetil 500 mg tablet 500 mg PO BID #20 tabs 07/19/23
ondansetron 4 mg disintegrating tablet 4 mg PO TIDPRN PRN nausea/vomiting #8 tabs 07/19/23
oxycodone-acetaminophen 5 mg-325 mg tablet (Percocet) 1 tab PO Q6HPRN PRN pain #6 tabs 07/19/23
Review of Systems
-
History Source: Patient
Constitutional: Reports Night Sweats
EENT: Reports No Symptoms
Respiratory: Reports No Symptoms
Cardiac: Reports No Symptoms
Abdomen/GI: Reports Abdominal Pain, Nausea and Vomiting
: Reports Flank Pain and Dark Urine
Musculoskeletal: Reports No Symptoms
Neurological: Reports No Symptoms
Endocrine: Reports No Symptoms
Hematologic/Lymphatic: Reports No Symptoms
Psych: Reports No Symptoms
Physical Exam
Vital Signs
Vital Signs
Temp Pulse Resp BP Pulse Ox
98.1 F 138 24 132/91 98
07/21/23 04:13 07/21/23 04:13 07/21/23 04:13 07/21/23 04:13 07/21/23 04:13
Physical Exam
General: Well Developed, Well Nourished and Appears in Distress
HEENT: NormoCephalic, Anicteric, Moist mucous membranes, Atraumatic and PERRLA
Respiratory: Clear
Cardiac: S1/S2, Regular Rhythm and Tachycardia
Breast: Deferred by me
GI: Soft, Non Tender, Non Distended and Normal Bowel Sounds
Rectal: Deferred by Provider
Genito-urinary: Costovertebral angle tend
Musculoskeletal: No Clubbing, No Cyanosis and No Edema
Skin: Warm and Dry
Neuro: AO x 3
Hematologic/Lymphatic: No Lymphadenopathy
Psych: Calm
Laboratory Results
-
07/21/23 04:25
07/21/23 04:25
Data Reviewed
-
CT Scan: Report Reviewed by me
Lab Data: Labs Reviewed by me
Old Records: Reviewed
Impression/Plan
-
IMPRESSION:
PLAN:
Renal Colic - Nephrolithiasis S/P double J placement at outpatient surgical center for obstructing stone. CT scan shows stent is appropriately positioned and no obstructing stone. Still has bilateral non-obstructing stones. He had discussed his
case w/ outpatient urology at [facility] but they stated nothing else can be done for him. Still with intractable n/v and flank pain. Pain likely related to ureteral stent in place. No signs of acute infection. He is not tolerating po, likely has
low pain tolerance and at risk for dehydration. Patient does use marijuana regularly and high risk for cannabinoid hyperemesis.
- admit to observation
- IV fluids
- pain control and antiemetics IV
- continue flomax and complete course of cefuroxime
- did not have urology consultation yet as no indication for any intervention at this time.
DVT PPX - SCDs
Full Code
[2023-07-21 06:50] VITALS: BP 114/78
--- NOTE | 2023-07-21 07:40 | CONS.URO ---
Consultation
-
Date/Time Consultation Requested: 07/21 739
Date/Time Consultation Performed: 07/20 740
Performing Provider: Armando
Medical History
History of Present Illness
I saw the patient here during winter for neprolithiasis. He decided to pursue his care with an urologist at [place]. The patient underwent ureteroscopy and stent placement 2 days ago via her outpatient surgical center. Status post procedure he
continued to have right-sided flank pain, hematuria, nausea and vomiting. He is unable to tolerate p.o. for his prescribed medications which included tamsulosin, Toradol, and even the ondansetron.
Past Medical History
Past Medical History: Other (Marijuana use Quiñones esophagus )
Past Surgical History: Urological
Allergies/Home Medications
Allergies
Allergy/AdvReac Type Severity Reaction Status Date / Time
No Known Allergies Allergy Verified 07/19/23 13:54
Home Medications
�Medication �Instructions �Recorded �Confirmed �Type
gabapentin 600 mg tablet 600 mg PO TID Neurological 03/03/21 07/21/23 History
(Neurontin) Condition
duloxetine 60 mg capsule,delayed 120 mg (2 x 60 mg) PO DAILY Mental 03/07/21 07/21/23 Rx
release Health/Anxiety #60 caps
acetaminophen 325 mg tablet 650 mg PO Q6H PRN pain/fever 07/21/23 07/21/23 History
(Tylenol)
lorazepam 0.5 mg tablet 0.5 mg PO BID PRN anxiety 07/21/23 07/21/23 History
montelukast 10 mg tablet 10 mg PO DAILY 07/21/23 07/21/23 History
(Singulair)
omeprazole magnesium 20 mg 20 mg PO BID 07/21/23 07/21/23 History
tablet,delayed release (Prilosec
OTC)
Physical Exam
Vital Signs
Vital Signs
Temp Pulse Resp BP Pulse Ox
98.1 F 83 16 114/78 99
04/28/24 04:13 07/21/23 06:50 07/21/23 06:50 07/21/23 06:50 07/21/23 06:50
Lab / Testing Results
Laboratory Results
07/21/23 04:25
07/21/23 04:25
Assessment / Plan
-
Right ureteral stent in proper position per CT
I recommend addition of Diazepam 10 mg po bid to reduce stent bother.
He is to f/u with his chosen urologist.
Data Reviewed
-
CT Scan: Image personally visualized and interpreted
[2023-07-21 08:01] VITALS: BP 131/84
[2023-07-21 08:02] VITALS: BMI 22.7
[2023-07-21] MEDS: D5/0.45%NACL 1000 IV ×2 (08:21→17:41)
[2023-07-21] MEDS: NEURONTIN 600 MG PO ×3 (09:08→17:41)
[2023-07-21] MEDS: VALIUM 10 MG PO ×2 (09:08→19:46)
[2023-07-21] MEDS: CYMBALTA DELAYED RELEASE 120 MG PO (10:55)
[2023-07-21] MEDS: FLOMAX 0.400000000000000022 MG PO (10:55)
[2023-07-21] MEDS: PROTONIX 40 MG PO ×2 (10:55→19:46)
[2023-07-21 11:09] VITALS: BP 113/76
[2023-07-21] MEDS: TYLENOL 650 MG PO (14:26)
[2023-07-21] MEDS: ATIVAN 0.5 MG PO (14:45)
[2023-07-21 15:29] VITALS: BP 138/84
--- NOTE | 2023-07-21 15:31 | PTCARENOTE ---
PT came onto floor this am wit 10/10 severe pain and nausea pt yelling moaning and curled up in a ball, Pt sweating and shaking. Pt stated he has sharp right abdomoinal pain that radiates to right flank that is worse when he has to void. Pt
vomitted 150 ml of liquid. Pt given stat PO valium, Dilaudid and zofran. within 20 minutes pt was relieved of pain, sleeping comfortably. At 1330 pt co headache that progressed to migraine. Two tylenol given. This did not work at all for the
patient and he progressed to shaking, sweating, hollering, curled up in a ball with level ten pain with x1 vomiting. Pt recieved zofran ativan and dilaudid. PT was relieved of a
--- NOTE | 2023-07-21 15:41 | PTCARENOTE ---
within 20 minutes again. PT currently resting without pain and is comfortable
--- NOTE | 2023-07-21 16:57 | W.PN.HOSP.TC ---
Today's Communication/Plan
-
Still nausea, vomiting, pain
Nausea medication prn
Diazepam as per urologist recommendations
Hopefully PO intake will improve over the next 24 hours
Assessment / Plan
Assessment / Plan
Physical Exam
General: Mild distress due to pain/nausea/vomiting
HEENT: Normocephalic
Respiratory: Clear to Auscultation Bilaterally
Cardiac: S1/S2, Regular Rhythm and Tachycardia
GI: Soft, Non Tender, Non Distended and Normal Bowel Sounds
Musculoskeletal: No Cyanosis and No Edema
Skin: Warm and Dry
Neuro: AAO x 3
Psych: Calm

Renal Colic, Flank Pain
Vomiting/Inability to Tolerate PO Intake
- Nephrolithiasis S/P double J placement at outpatient surgical center for obstructing stone. CT scan shows stent is appropriately positioned and no obstructing stone. Still has bilateral non-obstructing stones. He had discussed his case w/
outpatient urology at [place] but they stated nothing else can be done for him. Still with intractable n/v and flank pain. Pain likely related to ureteral stent in place. No signs of acute infection. He is not tolerating po, likely has low pain
tolerance and at risk for dehydration. Patient does use marijuana regularly and high risk for cannabinoid hyperemesis.
- IV fluids
- Pain control and antiemetics IV
- As per urology recommendation, Diazepam 10 mg PO BID
- Continue flomax
- Patient is no longer on Cefuroxime as per home med rec
- Urology consulted, recommendations appreciated
DVT PPX - Heparin Subq
Full Code
Anticipated Discharge: 24 - 48 hours
Subjective/Interval History
-
Date of Service: July 21, 2023
Patient was seen and examined. He vomited this morning, has pain, overall not feeling too well.
Objective Data
-
Vital Signs:
Vital Signs
Temp Pulse Resp BP Pulse Ox
97.2 F 112 16 138/84 97
07/21/23 15:29 07/21/23 15:29 07/21/23 15:29 07/21/23 15:29 07/21/23 15:29
I&O
07/20/23 07/21/23 07/22/23
06:59 06:59 06:59
Output Total 650 / 650
Balance -650 / -650
[2023-07-21] MEDS: SINGULAIR 10 MG PO ×2 (17:35→17:41)
[2023-07-21] MEDS: LOVENOX 40 MG SC ×2 (17:35→17:41)
[2023-07-21] MEDS: TORADOL 10 MG IV (17:42)
[2023-07-21 23:25] VITALS: BP 109/79
[2023-07-22] MEDS: D5/0.45%NACL 1000 IV (02:16)
[2023-07-22] MEDS: DILAUDID 1 MG IV ×5 (03:17→20:00)
[2023-07-22 03:30] VITALS: BP 117/73
[2023-07-22] MEDS: TORADOL 10 MG IV ×2 (05:25→14:11)
[2023-07-22 05:52] LABS: % Basophils 0.4 % (0-2); % Immature Granulocytes 0.3 % (0-0.5); % Lymphocytes 23.4 % (20.5-51.1); % Monocytes 10.6 % (1.7-9.3); % Neutrophils 64.3 % (42.2-75.2); Absolute Eosinophils 0.1 10^3/uL (0-0.7); Absolute Lymphocytes 1.6 10^3/uL (1.2-3.4); Absolute Monocytes 0.7 10^3/uL (0.1-0.6); Absolute Neutrophils 4.3 10^3/uL (1.4-6.5); Hematocrit 31.7 % (39.0-52.0); Hemoglobin 10.9 g/dL (13.0-18.0); Mean Corp Hgb Conc. 34.4 g/dL (33.0-37.0); Mean Corpuscular Hgb 29.5 pg (27.0-31.0); Mean Corpuscular Volume 85.9 fL (80.0-94.0); Mean Platelet Volume 9.6 fL (7.4-10.4); Nucleated Red Blood Cells % 0 % (-); Platelet Count 195 10^3/uL (130-400); Red Blood Cell Count 3.69 10^6/uL (4.70-6.10); White Blood Cell Count 6.7 10^3/uL (4.8-10.8)
[2023-07-22 06:13] LABS: Blood Urea Nitrogen 15 mg/dl (9-20); Calcium 9.1 mg/dl (8.4-10.2); Carbon Dioxide 28 mmol/L (22-30); Chloride 101 mmol/L (98-107); Estimated Creatinine Clearance 121 ml/min; Glucose 112 mg/dl (70-99); Phosphorus 4.6 mg/dl (2.5-4.5); Sodium 132 mmol/L (135-145); eGFR > 60.00
[2023-07-22 06:20] LABS: Potassium 3.9 mmol/L (3.5-5.1)
[2023-07-22 07:00] VITALS: BP 123/81
--- NOTE | 2023-07-22 07:31 | W.PN.URO.CBU ---
Today's Communication / Plan
-
I recommend Tamsulosin 0.4 mg and Diazepam 10 mg po bid to reduce stent bother.
He is to f/u with his chosen urologist.
Assessment / Plan
-
persistent nausea
Right ureteral stent in proper position per CT
Diagnosis
-
Date of Service: July 22, 2023
-
Patient Diagnosis:
Persistent nausea and vomiting
s/p Right ureteral stenting [by [place] urologist]
Subjective
-
dry heaving in bed
Objective
-
Vital Signs
Temp Pulse Resp BP Pulse Ox
97.5 F 94 22 117/73 97
07/22/23 03:30 07/22/23 03:30 07/22/23 03:30 07/22/23 03:30 07/22/23 03:30
Intake and Output
07/21/23 07/22/23 07/23/23
06:59 06:59 06:59
Intake Total 2280 / 2280
Output Total 1475 / 1475
Balance 805 / 805
Intake:
Oral fluids 1080 / 1080
IV fluids (Total) 1200 / 1200
Output:
Urine, Voided 1475 / 1475
Laboratory Results
07/22/23 05:31
07/22/23 05:31
urine cx: no growth
Physical Exam
-
General - dry heaving in bed
[2023-07-22] MEDS: NEURONTIN 600 MG PO ×3 (07:32→22:58)
[2023-07-22] MEDS: VALIUM 10 MG PO ×2 (07:32→22:20)
[2023-07-22] MEDS: FLOMAX 0.400000000000000022 MG PO (08:22)
[2023-07-22] MEDS: CYMBALTA DELAYED RELEASE 120 MG PO (08:22)
[2023-07-22] MEDS: PROTONIX 40 MG PO ×2 (08:22→22:19)
--- NOTE | 2023-07-22 10:53 | W.PN.HOSP.TC ---
Today's Communication/Plan
-
see A/P
Assessment / Plan
Assessment / Plan
A/P:
# Right Flank Pain
# Vomiting/Inability to tolerate PO Intake
Nephrolithiasis s/p double J placement outpatient for obstructing stone.
CT scan shows stent is appropriately positioned and no obstructing stone. Still has bilateral non-obstructing stones.
He discussed his case w/ outpatient urology at [place] and they stated nothing else can be done for him.
Pt still c/o intractable N/V and flank pain- ?more likely related to marijuana hyperemesis syndrome?
Patient does use marijuana regularly
Check UDS
Urine culture showed NO growth.
Cont Diazepam 10 mg PO BID and Flomax per Uro recc
Cont current pain control with IV Toradol and IV Dilaudid PRN
# Dilational anemia
DVT PPX - Lovenox SQ
Full Code
DW RN
Anticipated Discharge: Within 24 hours
Subjective/Interval History
-
Date of Service: July 22, 2023
Objective Data
-
Labs:
Laboratory Results
07/22/23
05:31
WBC 6.7
Hgb 10.9 L D
Hct 31.7 L
Plt Count 195 D
Sodium 132 L
Potassium 3.9
Chloride 101
Carbon Dioxide 28
BUN 15
Creatinine 0.7
Glucose 112 H
Calcium 9.1
Vital Signs:
Vital Signs
Temp Pulse Resp BP Pulse Ox
36.6 C 90 18 123/81 96
07/22/23 07:00 07/22/23 07:00 07/22/23 07:00 07/22/23 07:00 07/22/23 07:00
I&O
07/21/23 07/22/23 07/23/23
06:59 06:59 06:59
Intake Total 2280 / 2280
Output Total 1475 / 1475
Balance 805 / 805
Review of Systems
-
Genitourinary: Reports Flank Pain (Right flank pain)
Physical Exam
-
General: Well Developed, Well Nourished, No Apparent Distress and Conversant; Negative Respiratory Distress
HEENT: Normocephalic, Atraumatic, Nose Appears Normal and Ears Appear Normal; Negative Oxygen
Respiratory: Clear to Auscultation and Non Labored Respirations; Negative Accessory Resp Muscle Use
Cardiac: Regular Rhythm and S1/S2
GI: Soft, Nontender, Nondistended and Normal Bowel Sounds
Skin: Warm and Dry
Neuro: Awake and Alert
Psych: Calm and Intact Judgement/Insight
Data Reviewed
-
CT Scan: Report Reviewed by me
Labs: Labs Reviewed by me
[2023-07-22 11:00] VITALS: BP 110/83
[2023-07-22] MEDS: LIDOCAINE 4% PATCH 1 PATCH TOPICAL (11:34)
[2023-07-22 11:47] LABS: Amphetamines Negative (Negative); Barbiturates Negative (Negative); Benzodiazepines Positive (Negative); Buprenorphine Negative (Negative); Cocaine Negative (Negative); Marijuana Positive (Negative); Methadone Negative (Negative); Methamphetamines Negative (Negative); Opiates Positive (Negative); Phencyclidine Negative (Negative); Tricyclic Antidepressants Negative (Negative)
[2023-07-22 12:11] LABS: Fentanyl, Urine Negative (Negative)
[2023-07-22 15:00] VITALS: BP 118/80
--- NOTE | 2023-07-22 15:24 | CM ---
Met with patient at bedside
Pt lives with his and chiquita in a 2 story home
H/O Quiñones's esophagus, migraine headaches, chronic marijuana use, nephrolithiases, renal colic with R sided kidney stones
Describes self as independent, working FT, drives
DME - none
SNF/HH - denies past hx
Has ride at d/c
PCP - Dr Raffy Colón
Pharm - [facility]
CM will follow for d/c needs
Plan - anticipate home no needs
[2023-07-22 20:03] VITALS: BP 107/74
[2023-07-22 23:27] VITALS: BP 116/79
[2023-07-23] MEDS: DILAUDID 1 MG IV ×4 (00:10→12:29)
[2023-07-23 03:47] VITALS: BP 129/85
[2023-07-23 05:57] LABS: % Basophils 0.5 % (0-2); % Eosinophils 1.7 % (0-6); % Immature Granulocytes 0.5 % (0-0.5); % Lymphocytes 24.4 % (20.5-51.1); % Monocytes 9.7 % (1.7-9.3); % Neutrophils 63.2 % (42.2-75.2); Absolute Eosinophils 0.1 10^3/uL (0-0.7); Absolute Lymphocytes 1.4 10^3/uL (1.2-3.4); Absolute Monocytes 0.6 10^3/uL (0.1-0.6); Absolute Neutrophils 3.7 10^3/uL (1.4-6.5); Hematocrit 31.2 % (39.0-52.0); Hemoglobin 11.1 g/dL (13.0-18.0); Mean Corp Hgb Conc. 35.6 g/dL (33.0-37.0); Mean Corpuscular Hgb 29.7 pg (27.0-31.0); Mean Corpuscular Volume 83.4 fL (80.0-94.0); Mean Platelet Volume 10.1 fL (7.4-10.4); Nucleated Red Blood Cells % 0 % (-); Platelet Count 196 10^3/uL (130-400); Red Blood Cell Count 3.74 10^6/uL (4.70-6.10); Red Cell Dist. Width 11.9 % (11.5-14.5); White Blood Cell Count 5.8 10^3/uL (4.8-10.8)
[2023-07-23 06:30] LABS: Blood Urea Nitrogen 15 mg/dl (9-20); Calcium 9.4 mg/dl (8.4-10.2); Carbon Dioxide 27 mmol/L (22-30); Chloride 100 mmol/L (98-107); Estimated Creatinine Clearance 106 ml/min; Glucose 93 mg/dl (70-99); Phosphorus 5.8 mg/dl (2.5-4.5); Potassium 3.9 mmol/L (3.5-5.1); Sodium 135 mmol/L (135-145); eGFR > 60.00
[2023-07-23 08:00] VITALS: BP 122/83
[2023-07-23] MEDS: LIDOCAINE 4% PATCH 1 PATCH TOPICAL (08:16)
[2023-07-23] MEDS: NEURONTIN 600 MG PO (08:16)
[2023-07-23] MEDS: CYMBALTA DELAYED RELEASE 120 MG PO (08:16)
[2023-07-23] MEDS: FLOMAX 0.400000000000000022 MG PO (08:17)
[2023-07-23] MEDS: PROTONIX 40 MG PO (08:17)
[2023-07-23] MEDS: VALIUM 10 MG PO (08:17)
--- NOTE | 2023-07-23 10:31 | W.PN.HOSP.TC ---
Addendum entered and electronically signed by Trang Oh MD 07/23/23 14:47:
total DC time 35 min
Addendum entered and electronically signed by Trang Oh MD 07/23/23 11:44:
d/w Uro. He recc pt to return to his outpt urologist for stent removal. The appointment is for tmr 07/23 anyway.
Pt to be discharged with PO Dilaudid (will send 10 tabs, enough for him to last until seen by urologist for stent removal).
Will also send him with Valium and Flomax.
CONRAD RN
Original Note:
Today's Communication/Plan
-
see A/P
Pt requesting Uro eval for stent removal
Assessment / Plan
Assessment / Plan
A/P:
# Right Flank Pain
# Vomiting/Inability to tolerate PO Intake
Nephrolithiasis s/p double J placement outpatient for obstructing stone.
CT scan showed stent is appropriately positioned and no obstructing stone. Still has bilateral non-obstructing stones.
He discussed his case w/ outpatient urology at [place] and they stated nothing else can be done for him.
Pt still c/o intractable N/V and flank pain- ?related to marijuana hyperemesis syndrome?
Patient does use marijuana regularly. UDS positive for opiate, benzo and marijuana
Urine culture showed NO growth.
Cont Diazepam 10 mg PO BID and Flomax per Uro recc
Cont current pain control with IV Toradol and IV Dilaudid PRN
Pt requesting Uro eval for stent removal
# Dilational anemia
DVT PPX - Lovenox SQ
Full Code
CONRAD RN
Anticipated Discharge: 24 - 48 hours
Subjective/Interval History
-
Date of Service: July 23, 2023
Objective Data
-
Labs:
Laboratory Results
07/23/23
05:23
WBC 5.8
Hgb 11.1 L
Hct 31.2 L
Plt Count 196
Sodium 135
Potassium 3.9
Chloride 100
Carbon Dioxide 27
BUN 15
Creatinine 0.8
Glucose 93
Calcium 9.4
Vital Signs:
Vital Signs
Temp Pulse Resp BP Pulse Ox
36.9 C 97 17 122/83 96
07/23/23 08:00 07/23/23 08:00 07/23/23 08:00 07/23/23 08:00 07/23/23 08:00
I&O
07/22/23 07/23/23 07/24/23
06:59 06:59 06:59
Intake Total 2280 / 2280 900 / 900
Output Total 1475 / 1475 1550 / 1550
Balance 805 / 805 -650 / -650
Review of Systems
-
Genitourinary: Reports Flank Pain (Right flank pain)
Physical Exam
-
General: Well Developed, Well Nourished, No Apparent Distress, Pain and Conversant; Negative Respiratory Distress
HEENT: Normocephalic, Atraumatic, Nose Appears Normal and Ears Appear Normal; Negative Oxygen
Respiratory: Clear to Auscultation and Non Labored Respirations; Negative Accessory Resp Muscle Use
Cardiac: Regular Rhythm and S1/S2
GI: Soft, Nontender, Nondistended and Normal Bowel Sounds
Skin: Warm and Dry
Neuro: Awake and Alert
Psych: Calm and Intact Judgement/Insight
Data Reviewed
-
CT Scan: Report Reviewed by me
Labs: Labs Reviewed by me
[2023-07-23] MEDS: TORADOL 10 MG IV (10:37)
[2023-07-23] MEDS: ZOFRAN 4 MG IV (12:30)
--- NOTE | 2023-07-23 12:30 | PTCARENOTE ---
Patient actively vomiting, curled up in a ball in the bed. Refusing Vital Signs at this time.
[2023-07-23 13:55] VITALS: BP 130/53
--- NOTE | 2023-07-23 14:35 | W.DCSUMMARY ---
Discharge Summary
Discharge Data
Date of Admission: 07/21/23
Date of Discharge: 07/23/23
-
Pending Results: No
Hospital Course
Principal Diagnosis:
Right Flank Pain with Nephrolithiasis status post double J placement outpatient for obstructing stone.
Dilational anemia
Chronic Diagnoses:�
kidney stone
Marijuana use
Consultations:�
Urology
Procedures:�
None
Clinical course:�
This is a 48-year-old male, with past medical history as stated above, who presented with right-sided flank pain associated with nausea and inability to tolerate p.o. intake.
Problem 1:
Right Flank Pain with Nephrolithiasis s/p double J placement outpatient for obstructing stone.
His CT scan showed the stent is appropriately positioned and there is NO obstructing stone.
His urine culture showed NO growth.
Per urology, he can continue with diazepam 10 mg PO BID and Flomax. Both were added this admission.
He was requesting for the renal stent to be removed, and per discussion with our urologist, this can be done outpatient with his outside urologist. The patient does have an appointment for stent removal on 07/24/2023.
He was discharged with Dilaudid to continue pain control. 10 tablets were sent to his pharmacy, which should be enough until he sees his urologist outpatient.
As for the rest of his medical problems, they were stable during his hospital stay.
Discharge Plan
-
Patient Disposition: Home (Routine Discharge)
Discharge Diagnosis/Procedures: Right Flank Pain with kidney stone status post double J placement for obstructing stone.
Condition: Good
Diet: As tolerated
Activity: As tolerated
Driving Restrictions: Not until seen by your Dr
Activity Restrictions/Additional Instructions:
Follow up with your urologist for stent removal
Referrals:
Raffy Colón, [Family Provider] - in less than 1 week
Prescriptions:
New
tamsulosin 0.4 mg Capsule
0.4 mg PO DAILY Qty: 30 0RF
diazepam [Valium] 10 mg tablet
10 mg PO BID Qty: 10 0RF
hydromorphone [Dilaudid] 2 mg tablet
2 mg PO Q6H PRN (Reason: Pain) Qty: 10 0RF
Continued
gabapentin [Neurontin] 600 MG tablet
600 mg PO TID
duloxetine 60 MG capsule,delayed release(DR/EC)
120 mg PO DAILY Qty: 60 0RF
acetaminophen [Tylenol] 325 mg Tablet
650 mg PO Q6H PRN (Reason: pain/fever)
lorazepam 0.5 mg Tablet
0.5 mg PO BID PRN (Reason: anxiety)
montelukast [Singulair] 10 mg Tablet
10 mg PO DAILY
omeprazole magnesium [Prilosec OTC] 20 mg Tablet,Delayed Release (Dr/Ec)
20 mg PO BID
Discharge Orders:
Discharge Patient (As Directed); Ordered 07/23/23
Ordered By: Trang Oh
Discharge Date and Time
Print Language: AZERI
--- NOTE | 2023-07-23 16:23 | CM ---
Pt for d/c today
Has appt at [facility] for today
Has ride with
Plan - home no needs
== END 2023-07-23 14:30 | disposition home or self-care (01) ==
LOC: 3 WEST ACU 06:43
PROVIDERS: Hospitalist; ADMITTING PHYSICIAN Internal Medicine; ATTENDING PHYSICIAN Internal Medicine; CONSULT PHYSICIAN Specialist; EMERGENCY PHYSICIAN Emergency Medicine; FAMILY PHYSICIAN Family Medicine Sports Medicine
DX: N20.0 Calculus of kidney (principal); D64.9 Anemia, unspecified; F12.90 Cannabis use, unspecified, uncomplicated; E86.0 Dehydration; K21.9 Gastro-esophageal reflux disease without esophagitis; M79.7 Fibromyalgia; Z79.899 Other long term (current) drug therapy; Z87.442 Personal history of urinary calculi
CPT/HCPCS: 80048; 80306; 80307; 83735; 84100; 85025; 93005; 96361; 96374; 96375; 99285; G0378

== ENCOUNTER → 2023-09-10 10:01 | Outpatient (REF) | payer MEDICARE, OTHER, SELFPAY | LOC: HWRAD 10:01 | PROVIDERS: ATTENDING PHYSICIAN Family Medicine Sports Medicine | DX: N23 Unspecified renal colic (principal) | CPT/HCPCS: 76770 ==

== ENCOUNTER 2024-03-28 11:52 | Emergency (ER) | payer MEDICARE, OTHER, SELFPAY ==
[2024-03-28 11:54] VITALS: BP 136/76
[2024-03-28] MEDS: HALDOL 2.5 MG IV (12:11)
[2024-03-28] MEDS: NSS 1000 IV (12:13)
[2024-03-28 12:24] VITALS: BMI 24.1
[2024-03-28 12:34] LABS: % Basophils 0.3 % (0-2); % Eosinophils 0.3 % (0-6); % Immature Granulocytes 0.4 % (0-0.5); % Lymphocytes 12.2 % (20.5-51.1); % Monocytes 4.2 % (1.7-9.3); % Neutrophils 82.6 % (42.2-75.2); Absolute Basophils 0.1 10^3/uL (0-0.2); Absolute Immature Granulocytes 0.1 10^3/uL (0-0.05); Absolute Lymphocytes 1.9 10^3/uL (1.2-3.4); Absolute Monocytes 0.7 10^3/uL (0.1-0.6); Hematocrit 43.4 % (39.0-52.0); Hemoglobin 14.3 g/dL (13.0-18.0); Mean Corp Hgb Conc. 32.9 g/dL (33.0-37.0); Mean Corpuscular Hgb 29.2 pg (27.0-31.0); Mean Corpuscular Volume 88.8 fL (80.0-94.0); Nucleated Red Blood Cells % 0 % (-); Platelet Count 322 10^3/uL (130-400); Red Blood Cell Count 4.89 10^6/uL (4.70-6.10); Red Cell Dist. Width 12.6 % (11.5-14.5); White Blood Cell Count 15.8 10^3/uL (4.8-10.8)
[2024-03-28 12:40] LABS: ALT (SGPT) 23 U/L (0-50); AST (SGOT) 28 U/L (17-59); Albumin 5.6 g/dl (3.5-5.0); Alkaline Phosphatase 80 U/L (38-126); Blood Urea Nitrogen 15 mg/dl (9-20); Calcium 10.8 mg/dl (8.4-10.2); Carbon Dioxide 27 mmol/L (22-30); Chloride 102 mmol/L (98-107); Estimated Creatinine Clearance 85 ml/min; Glucose 141 mg/dl (70-99); Potassium 4.9 mmol/L (3.5-5.1); Sodium 142 mmol/L (135-145); Total Bilirubin 0.5 mg/dl (0.2-1.3); Total Protein 8.6 g/dl (6.3-8.2); eGFR > 60.00
[2024-03-28 13:04] LABS: Lipase 96 U/L (23-300)
--- NOTE | 2024-03-28 13:16 | ED.GENMED ---
History of Present Illness
General
Chief Complaint: Abdominal Symptoms
Source: patient, records and spouse
Exam Limitations: none
Time Seen by Provider: 03/28/24 12:03
Nursing documentation reviewed up to this point in time: agreed with
History of Present Illness
History of Present Illness:
49-year-old male with past medical history of migraines, seizures, hyperlipidemia, GERD, cyclic vomiting/cannabinoid hyperemesis, kidney stones who presents to the emergency department for evaluation of abdominal pain with nausea and vomiting.
Patient reports symptoms started this morning around 7 AM and have been constant and severe since. He reports pain across the mid abdomen. He reports nausea that is very intense and associated repeated vomiting/dry heaving. Denies any diarrhea.
Denies any recent fevers or chills. Denies any headache. Denies any neck pain. He denies any other complaints. He says he has had similar symptoms from cannabinoid hyperemesis in the past.
Past History
Past History
ED Past Medical History: GERD (GERD with Quiñones's esophagus), Other (Kidney stones), Other (Fibromyalgia, anxiety, depression) and Other (Undifferentiated colitis)
ED Past Surgical History: Urological; Negative Bowel resection, Brain, Cardiac or Cholecystectomy
Social History
Tobacco: Non-smoker
Alcohol: None
Drug: Marijuana
Personal:
Living: with family
Family History
Family History: Other (Noncontributory)
Review of Systems
Review of Systems
All Other Systems: ROS reviewed and negative except as documented in HPI and ROS
Constitutional: Denies fever or chills
Respiratory: Denies trouble breathing
Cardiac: Denies chest pain
ABD/GI: Reports abdominal pain, nausea and vomiting; Denies diarrhea
: Denies flank pain
Musculoskeletal: Denies neck pain or back pain
Neurological: Denies headache
Phy Exam
Physical Exam
Physical Exam:
General: Awake, alert, actively and loudly dry heaving
Head: Normocephalic, atraumatic
Eyes: Conjunctiva normal, sclera anicteric, pupils equal round and reactive to light bilaterally
Throat: Airway intact, mucous membranes slightly dry
Neck: Trachea midline, supple without meningismus
Lungs: Clear to auscultation bilaterally, no wheezing, rales, rhonchi
Heart: Tachycardia with regular rhythm, no murmurs, gallops, or rubs
Abd: Soft, non distended, tender across the mid abdomen, no peritoneal signs, no masses
Neuro: No gross deficits
Skin: no rash
Extremities: Warm and well-perfused
Scores
Heart Failure Risk
Heart Failure Risk Score: Not Applicable
Heart Score for Chest Pain Patients
STEMI patient?: Not applicable
Withdrawal Assessment of Alcohol
Withdrawal Assessment Completed?: Not applicable
Course
Orders/Labs/Results
Orders:
Orders
03/28/24 12:03
Electrocardiogram (*1) Urgent
Reason for Study: QTc Monitoring
EKG- Treatment ONCE
Haloperidol Lactate [Haldol] 2.5 mg IV NOW STA
03/28/24 12:04
0.9% Sodium Chloride 1000 ml [Nss] 1,000 ml IV BOLUS
03/28/24 12:18
Complete Blood Count/With Diff Urgent
Comprehensive Metabolic Panel Urgent
Lipase Urgent
03/28/24 13:10
CT Abd/pelvis W Iv Cont Urgent
Comment:
Reason For Exam: periumbilical abd pain, N/V/dry heaves
HYDROmorphone [Dilaudid] 0.5 mg IV NOW STA
Lorazepam [Ativan] 0.5 mg IV NOW STA
03/28/24 13:15
Oxycodone [Roxicodone] 5 mg PO NOW STA
03/28/24 15:55
Urinalysis Reflex To Culture Urgent
Date Specimen was Collected: 03/28/24
Time Specimen was Collected: 15:53
03/28/24 16:25
Pantoprazole [Protonix IV] 40 mg IV NOW STA
Abnormal Lab Results
03/28/24 03/28/24
12:18 15:55
WBC 15.8 H 10^3/uL
(4.8-10.8)
MCHC 32.9 L g/dL
(33.0-37.0)
Abs Immat Gran (auto) 0.1 H 10^3/uL
(0-0.05)
Absolute Neuts (auto) 13.0 H 10^3/uL
(1.4-6.5)
Absolute Monos (auto) 0.7 H 10^3/uL
(0.1-0.6)
Neutrophils % 82.6 H %
(42.2-75.2)
Lymphocytes % 12.2 L %
(20.5-51.1)
Glucose 141 H mg/dl
(70-99)
Calcium 10.8 H mg/dl
(8.4-10.2)
Total Protein 8.6 H g/dl
(6.3-8.2)
Albumin 5.6 H g/dl
(3.5-5.0)
Urine Ketones 1+ A
(Negative)
03/28/24 12:18
03/28/24 12:18
Vital Signs
Initial and Last Documented VS:
Initial Vital Signs
Pulse Resp BP Pulse Ox
94 18 136/76 99
03/28/24 11:54 03/28/24 11:54 03/28/24 11:54 03/28/24 11:54
Last Documented Vital Signs
Temp Pulse Resp BP Pulse Ox
37.2 C 108 18 147/98 95
03/28/24 15:12 03/28/24 17:23 03/28/24 17:23 03/28/24 17:23 03/28/24 17:23
MDM/Problems Addressed
Differential Diagnosis Includes:
Nephrolithiasis, gastritis/enteritis, pancreatitis, cholelithiasis/cholecystitis, cyclic vomiting/cannabinoid hyperemesis
MDM/Problems Addressed:
49-year-old male presents to the emergency room for evaluation of nausea, vomiting, abdominal pain as described above. Appears very uncomfortable actively retching/dry heaving. Vitals and exam as above. IV placed labs sent off including a CBC and
a CMP, lipase. Will check urinalysis. Will send for CT abdomen pelvis. Will start with Haldol as based on his clinical appearance I do suspect that this is cannabinoid hyperemesis. Provide IV fluids. Reassess
Nausea improved with Haldol still having pain. Will treat with Dilaudid. He is complaining of significant anxiety, possibly secondary to Haldol. Treat with some Ativan. Awaiting CT.
Labs reviewed he does have a slight leukocytosis I suspect this is demargination/stress response in the setting of his significant retching. CT showed signs consistent with mild colitis and gastritis. No acute intra-abdominal emergency. Clinical
reassessment patient symptoms are resolved he is sleeping comfortably in bed no additional vomiting or pain. I spoke to him he feels that his symptoms are well enough where he can try to go home. Will p.o. trial and reassess. If tolerating p.o.
will plan for discharge on PPI.
Patient tolerating p.o., feels comfortable with discharge. Encouraged bland diet, PPI, good p.o. hydration. Spoke about return precautions all questions answered.
*Radiology
Radiology exam reviewed: radiology read reviewed
*Pulse Oximetry
Patient hypoxic: no
*EKG
Interpreted by ED Provider?: Yes
Heart Rate: 90
Rate: normal
Rhythm: sinus
[place]: normal axis
Interval: normal interval and normal QT interval
QRS Pattern: normal QRS
Ischemia: other (Nonspecific T wave abnormality)
*Critical Care Note
Total Time (30-74mins, 75-104mins- exclusive of procedures): Not Applicable
Data Reviewed
Review of Other/Old Records Reveals: Labs, Records and Discharge Summary
Source: patient and spouse
ED Attending Note
-
Portions of this chart may have been created with voice recognition software.� Occasional wrong word or��sound alike� substitutions may have occurred due to the inherent limitations of voice recognition software.
Discharge Plan
Departure
Patient Disposition: Home (Routine Discharge)
Date of Disposition: 03/28/24
Time of Disposition: 17:25
Patient with high blood pressure during this ER visit?: No
Discharge Problem:
Gastritis, Nausea & vomiting
Instructions: [place] Diet, Nausea and Vomiting, Adult (DC)
Prescriptions:
New
pantoprazole 40 mg tablet,delayed release (DR/EC)
40 mg PO DAILY Qty: 30 0RF
No Action
gabapentin [Neurontin] 600 MG tablet
600 mg PO TID
duloxetine 60 MG capsule,delayed release(DR/EC)
120 mg PO DAILY Qty: 60 0RF
acetaminophen [Tylenol] 325 mg Tablet
650 mg PO Q6H PRN (Reason: pain/fever)
lorazepam 0.5 mg Tablet
0.5 mg PO BID PRN (Reason: anxiety)
Rx Instructions:
03/28/24 reports takes 0.5mg daily
Referrals:
Raffy Colón DO [Family Provider] - Call in 1-3 days for appt
Activity Restrictions/Additional Instructions:
Thank you for visiting the Emergency Department at [facility].
1. Please schedule a follow up appointment as directed. Call first thing tomorrow morning to make an appointment.
2. If indicated, please take your medications as instructed and indicated on discharge paperwork.
3. If any of your symptoms do not improve, or persist, or become more severe within 6-12 hours, please return to the emergency department for further care.
4. Please return to the emergency department if you develop a headache, neck pain/stiffness, fever greater than 100.4F, chest pain, shortness of breath, persistent nausea, vomiting, slurred speech, difficulty walking, numbness/tingling, weakness,
signs of infection or any other symptoms that are worrisome to you.
Please call [phone] if you have any questions.
Interventions
Interventions:
*Risk Screen - Suicide Last Done: 03/28/24 11:54
*General Assessment Last Done: 03/28/24 11:54
*Neglect/Abuse Screening Last Done: 03/28/24 12:19
ED- Fall Risk Assessment Last Done: 03/28/24 12:19
*ED COVID-19 Vaccine History Last Done: 03/28/24 12:19
XR-Ojsean-Sgpamhijbg Assessment Last Done: 03/28/24 13:00
Discharge Date and Time
Print Language: CROATIAN
[2024-03-28] MEDS: DILAUDID 0.5 MG IV (13:26)
[2024-03-28] MEDS: ATIVAN 0.5 MG IV (13:27)
[2024-03-28 13:33] VITALS: BP 152/92
[2024-03-28 15:12] VITALS: BP 136/88
[2024-03-28 16:08] LABS: Urine Albumin Trace (Neg - Trace); Urine Bilirubin Negative (Negative); Urine Character Clear (Clear); Urine Color Yellow; Urine Glucose Negative (Negative); Urine Ketone 1+ (Negative); Urine Leukocyte Negative (Negative); Urine Nitrite Negative (Negative); Urine Occult Blood Negative (Negative); Urine Urobilinogen Negative (Neg - 1+)
[2024-03-28 17:23] VITALS: BP 147/98
[2024-03-28] MEDS: PROTONIX IV 40 MG IV (17:25)
== END 2024-03-28 17:50 | disposition home or self-care (01) ==
LOC: EMR 11:52
PROVIDERS: EMERGENCY PHYSICIAN Emergency Medicine; FAMILY PHYSICIAN Family Medicine Sports Medicine
DX: K29.00 Acute gastritis without bleeding (principal); R11.2 Nausea with vomiting, unspecified; G43.909 Migraine, unspecified, not intractable, without status migrainosus; R56.9 Unspecified convulsions; K21.9 Gastro-esophageal reflux disease without esophagitis; M79.7 Fibromyalgia; K52.9 Noninfective gastroenteritis and colitis, unspecified; K22.70 Barrett's esophagus without dysplasia; F32.A Depression, unspecified; F41.9 Anxiety disorder, unspecified; E78.5 Hyperlipidemia, unspecified; Z87.442 Personal history of urinary calculi; Z87.891 Personal history of nicotine dependence
CPT/HCPCS: 99284; 96375 ×3; 96361; 96374; 74177; 80053; 81003; 83690; 85025; 93005; Q9967

== ENCOUNTER 2024-08-20 09:33 | Emergency (ER) | payer MEDICARE, OTHER, SELFPAY ==
[2024-08-20 09:34] VITALS: BP 145/94
--- NOTE | 2024-08-20 10:01 | ED.GENMED ---
History of Present Illness
General
Chief Complaint: Abdominal Symptoms
Source: patient and records
Exam Limitations: none
Time Seen by Provider: 08/20/24 09:47
History of Present Illness
History of Present Illness:
49yoM with a history of cyclic vomiting syndrome, GERD, kidney stones, anxiety, and depression presenting for evaluation of vomiting. Symptoms initially began 6 days ago. He had an episode of diarrhea and subsequently felt like his 'insides were
pulling.' He then started to have nausea and vomiting. Patient has been vomiting persistently since then. He has tried Zofran without any relief. He has not had a bowel movement in the past 4 days. He reports generalized abdominal pain. He has
a history of cyclic vomiting syndrome although he has does not typically have diarrhea with these episodes. He smokes marijuana frequently. He was previously smoking 3-4 times a day but has been trying to cut back to every other day. He denies
any fevers, hematemesis, hematochezia. No previous abdominal surgeries.
Past History
Past History
ED Past Medical History: GERD (GERD with Quiñones's esophagus), Other (Kidney stones), Other (Fibromyalgia, anxiety, depression) and Other (Undifferentiated colitis)
ED Past Surgical History: Urological; Negative Bowel resection, Brain, Cardiac or Cholecystectomy
Social History
Tobacco: Non-smoker
Alcohol: None
Drug: Marijuana
Personal:
Living: with family
Family History
Family History: Other (Noncontributory)
Phy Exam
Physical Exam
Physical Exam:
Appears uncomfortable, non-toxic
General Physical Exam
General Presentation: well appearing
General Skin: warm and dry
General Habitus: normal
General Mental: alert
ENT Exam
ENT Exam: normocephalic
Pulmonary Exam
Pulmonary Exam: no respiratory distress
Gastrointestinal Exam
Gastrointestinal Exam: soft, non distended and other (+mild generalized tenderness)
Neurological Exam
Neurological Exam: alert
Meena Coma Scale
Eye Opening: Spontaneous
Verbal Response: Oriented
Motor Response: Obeys Commands
GCS Total Score: 15
Skin Exam
Skin Exam: normal color and warm/dry
Psychiatric Exam
Psychiatric Exam: anxious
Course
Orders/Labs/Results
Orders:
Orders
08/20/24 10:00
Cardiac Monitoring- Treatment ONCE
0.9% Sodium Chloride 1000 ml [Nss] 1,000 ml IV BOLUS
Famotidine [Pepcid] 20 mg IV NOW STA
Ketorolac [Toradol] 15 mg IV NOW STA
droPERidol [Inapsine] 1.25 mg IV NOW STA
08/20/24 10:01
CT Abd/pelvis W Iv Cont Urgent
Comment:
Reason For Exam: generalized abd pain
08/20/24 10:30
Complete Blood Count/With Diff Urgent
Comprehensive Metabolic Panel Urgent
Lipase Urgent
Magnesium Urgent
Abnormal Lab Results
08/20/24
10:30
RBC 4.45 L 10^6/uL
(4.70-6.10)
Hgb 12.9 L g/dL
(13.0-18.0)
Hct 36.4 L %
(39.0-52.0)
Absolute Monos (auto) 0.7 H 10^3/uL
(0.1-0.6)
Monocytes % 13.6 H %
(1.7-9.3)
BUN 21 H mg/dl
(9-20)
Glucose 103 H mg/dl
(70-99)
08/20/24 10:30
08/20/24 10:30
Vital Signs
Initial and Last Documented VS:
Initial Vital Signs
Temp Pulse Resp BP Pulse Ox
98.1 F 130 20 145/94 98
08/20/24 09:34 08/20/24 09:34 08/20/24 09:34 08/20/24 09:34 08/20/24 09:34
Last Documented Vital Signs
Temp Pulse Resp BP Pulse Ox
98.1 F 106 19 127/87 96
08/20/24 09:34 08/20/24 12:32 08/20/24 12:32 08/20/24 12:33 08/20/24 12:30
MDM/Problems Addressed
Differential Diagnosis Includes:
49yoM here with n/v x 5 days. Hx of cyclic vomiting syndrome. Also c/o generalized abd pain and diarrhea. HR 130 in triage. He appears anxious but is non-toxic. No signs of peritonitis on abdominal exam. Differential diagnosis includes but is not
limited to: cyclic vomiting syndrome, cannabinoid hyperemesis, dehydration, gastroenteritis, kidney stone
Initial ED plan: Check abdominal labs, magnesium, and CT abdomen. IV droperidol, Toradol, Pepcid, and fluid bolus for symptoms.
*Critical Care Note
Total Time (30-74mins, 75-104mins- exclusive of procedures): Not Applicable
Update Note
Update Note:
Labs overall unremarkable including normal white count, electrolytes, renal function. CT is negative for acute findings. Patient feeling significantly improved on reassessment and he is requesting discharge. He was able to tolerate sips of PO
liquids. Patient has Zofran at home that he can use PRN. Advised f/u with PCP and ED return precautions reviewed. Patient discharged in stable condition.
ED Attending Note
-
Portions of this chart may have been created with voice recognition software.� Occasional wrong word or��sound alike� substitutions may have occurred due to the inherent limitations of voice recognition software.
Discharge Plan
Departure
Patient Disposition: Home (Routine Discharge)
Date of Disposition: 08/20/24
Time of Disposition: 12:24
Patient with high blood pressure during this ER visit?: No
Discharge Problem:
Nausea and vomiting
Instructions: Nausea and Vomiting, Adult (DC)
Prescriptions:
No Action
gabapentin [Neurontin] 600 MG tablet
600 mg PO TID
duloxetine 60 MG capsule,delayed release(DR/EC)
120 mg PO DAILY Qty: 60 0RF
acetaminophen [Tylenol] 325 mg Tablet
650 mg PO Q6H PRN (Reason: pain/fever)
lorazepam 0.5 mg Tablet
0.5 mg PO BID PRN (Reason: anxiety)
Rx Instructions:
03/28/24 reports takes 0.5mg daily
pantoprazole 40 mg tablet,delayed release (DR/EC)
40 mg PO DAILY Qty: 30 0RF
Referrals:
Raffy Colón DO [Family Provider, Family Practice]
Activity Restrictions/Additional Instructions:
Take Zofran as needed for nausea.
Please follow-up with your family doctor. Return to the ER with any new or worsening symptoms.
Interventions
Interventions:
*Risk Screen - Suicide Last Done: 08/20/24 09:34
*General Assessment Last Done: 08/20/24 09:34
*Neglect/Abuse Screening Last Done: 08/20/24 12:47
*ED- Fall Risk Assessment Last Done: 08/20/24 12:47
*ED COVID-19 Vaccine History Last Done: 08/20/24 12:47
*Nursing Disposition Last Done: 08/20/24 12:30
LF-Spcypl-Dmmxochodq Assessment Last Done: 08/20/24 11:00
Discharge Date and Time
Discharge Date/Time: 08/20/24 12:30
Print Language: BENGALI
[2024-08-20 10:25] VITALS: BMI 22.1
[2024-08-20] MEDS: NSS 1000 IV (10:31)
[2024-08-20] MEDS: PEPCID 20 MG IV (10:38)
[2024-08-20] MEDS: TORADOL 15 MG IV (10:39)
[2024-08-20] MEDS: INAPSINE 1.25 MG IV (10:40)
[2024-08-20 10:42] LABS: % Basophils 0.6 % (0-2); % Eosinophils 0.6 % (0-6); % Monocytes 13.6 % (1.7-9.3); % Neutrophils 58.2 % (42.2-75.2); Absolute Lymphocytes 1.3 10^3/uL (1.2-3.4); Absolute Monocytes 0.7 10^3/uL (0.1-0.6); Absolute Neutrophils 2.8 10^3/uL (1.4-6.5); Hematocrit 36.4 % (39.0-52.0); Hemoglobin 12.9 g/dL (13.0-18.0); Mean Corp Hgb Conc. 35.4 g/dL (33.0-37.0); Mean Corpuscular Volume 81.8 fL (80.0-94.0); Mean Platelet Volume 10.2 fL (7.4-10.4); Nucleated Red Blood Cells % 0 % (-); Platelet Count 259 10^3/uL (130-400); Red Blood Cell Count 4.45 10^6/uL (4.70-6.10); Red Cell Dist. Width 11.6 % (11.5-14.5); White Blood Cell Count 4.8 10^3/uL (4.8-10.8)
[2024-08-20 10:50] VITALS: BP 113/84
[2024-08-20 10:54] LABS: ALT (SGPT) 15 U/L (0-50); AST (SGOT) 18 U/L (17-59); Albumin 4.9 g/dl (3.5-5.0); Alkaline Phosphatase 60 U/L (38-126); Blood Urea Nitrogen 21 mg/dl (9-20); Calcium 9.7 mg/dl (8.4-10.2); Carbon Dioxide 25 mmol/L (22-30); Chloride 104 mmol/L (98-107); Estimated Creatinine Clearance 91 ml/min; Glucose 103 mg/dl (70-99); Lipase 80 U/L (23-300); Magnesium 2.3 mg/dl (1.6-2.3); Potassium 4.4 mmol/L (3.5-5.1); Sodium 137 mmol/L (135-145); Total Bilirubin 0.7 mg/dl (0.2-1.3); Total Protein 7.4 g/dl (6.3-8.2); eGFR > 60.00
[2024-08-20 12:30] VITALS: BP 127/87
[2024-08-20 12:33] VITALS: BP 127/87
== END 2024-08-20 12:30 | disposition home or self-care (01) ==
LOC: EMR 09:33
PROVIDERS: Physician Assistant; EMERGENCY PHYSICIAN Emergency Medicine; FAMILY PHYSICIAN Family Medicine Sports Medicine
DX: R11.2 Nausea with vomiting, unspecified (principal); R10.84 Generalized abdominal pain; R19.7 Diarrhea, unspecified; K21.9 Gastro-esophageal reflux disease without esophagitis; F41.9 Anxiety disorder, unspecified; F32.A Depression, unspecified; M79.7 Fibromyalgia; K52.9 Noninfective gastroenteritis and colitis, unspecified; K22.70 Barrett's esophagus without dysplasia; F12.90 Cannabis use, unspecified, uncomplicated; Z87.442 Personal history of urinary calculi
CPT/HCPCS: 99284; 96375 ×2; 96361; 96374; 74177; 80053; 83690; 83735; 85025; J1790; Q9967